=== PATIENT | female | born 1950 | race Caucasian/White ===

== ENCOUNTER → 2020-06-08 11:33 | Outpatient (BNVA) | payer MEDICARE, BC, SELFPAY | PROVIDERS: PCP Internal Medicine; Visit Provider Surgery Vascular Surgery | DX: I83.12 Varicose veins of left lower extremity with inflammation (principal); I83.11 Varicose veins of right lower extremity with inflammation; Z98.890 Other specified postprocedural states | CPT/HCPCS: 99213 ==

== ENCOUNTER → 2020-07-14 09:02 | Outpatient (BNVA) | payer MEDICARE, BC, SELFPAY | PROVIDERS: PCP Internal Medicine; Referring Provider Internal Medicine; Visit Provider Surgery Vascular Surgery | DX: I83.12 Varicose veins of left lower extremity with inflammation (principal) | CPT/HCPCS: 36482 ==

== ENCOUNTER 2020-07-17 09:05 | Outpatient (REF) | payer MEDICARE, BC, SELFPAY ==
--- NOTE | 2020-07-17 | US_ITS ---
EXAMINATION: US VENOUS ULTRASOUND WITH DOPPLER LOWER EXTREMITY, LEFT CLINICAL INFORMATION: Status post venaseal with left leg pain COMPARISON: None TECHNIQUE: Ultrasound of the deep veins is performed from the hip to the calf with compression sonography and color and pulse Doppler assessment. Spectral analysis with color-flow imaging is performed. FINDINGS: There is normal venous compression and respiratory variation and augmented flow. The visualized common femoral vein, superficial femoral vein, profunda femoral vein, popliteal vein, and the trifurcation region shows no evidence of deep venous thrombosis. There is no significant popliteal fossa cyst. No popliteal artery aneurysm. Thrombus is seen within the greater saphenous vein approximately 6 cm distal from the saphenofemoral junction. If the patient's symptoms persist, followup ultrasound in 5 days 7 days might be of value to exclude proximal propagation from a non-visualized calf vein. US/US venous duplex LE IMPRESSION: No acute DVT demonstrated in the left lower extremity. Greater saphenous vein thrombosis beginning approximately 6 cm from the saphenofemoral junction.
== END 2020-07-17 09:06 | disposition home or self-care (01) ==
LOC: HO.HMGCX 09:05
PROVIDERS: Visit Provider Surgery Vascular Surgery
DX: M79.605 Pain in left leg (principal)
CPT/HCPCS: 93971

== ENCOUNTER → 2020-07-31 10:02 | Outpatient (BNVA) | payer MEDICARE, BC, SELFPAY | PROVIDERS: PCP Internal Medicine; Referring Provider Internal Medicine; Visit Provider Surgery Vascular Surgery | DX: I83.12 Varicose veins of left lower extremity with inflammation (principal); Z98.890 Other specified postprocedural states | CPT/HCPCS: 99212 ==

== ENCOUNTER 2020-10-03 14:38 | Outpatient (REF) | payer MEDICARE, BC, SELFPAY ==
[2020-10-03 17:09] LABS: Anion Gap 13 (12-20); Blood Urea Nitrogen 15 mg/dL (9-16); Calcium 8.6 mg/dL (8.4-10.2); Carbon Dioxide 29 mmol/L (22-29); Chloride 106 mmol/L (96-108); Estimated Glomerular Filt Rate 56; Glucose Random 97 mg/dL (60-115); Sodium 143 mmol/L (135-145)
== END 2020-10-03 14:39 | disposition home or self-care (01) ==
LOC: HO.HMGCLDS 14:38
PROVIDERS: PCP Internal Medicine; Visit Provider Internal Medicine Cardiovascular Disease
DX: I48.91 Unspecified atrial fibrillation (principal)
CPT/HCPCS: 36415; 80048

== ENCOUNTER → 2020-12-26 10:53 | Outpatient (BNVA) | payer MEDICARE, BC, SELFPAY | PROVIDERS: PCP Internal Medicine; Visit Provider Surgery Vascular Surgery | DX: I83.11 Varicose veins of right lower extremity with inflammation (principal); I73.9 Peripheral vascular disease, unspecified | CPT/HCPCS: 99212 ==

== ENCOUNTER 2021-01-15 10:29 | Outpatient (REF) | payer MEDICARE, BC, SELFPAY ==
--- NOTE | ~2021-01-15 | US_ITS ---
EXAMINATION: BILATERAL LOWER EXTREMITY VENOUS ULTRASOUND (Reflux Exam) CLINICAL INDICATION: This is a 70-year-old female with venous insufficiency. Varicose veins. COMPARISON: Comparison is made to a previous study dated 07/17/2020 that was a deep vein study. There was no deep vein thrombosis in the left lower extremity. TECHNIQUE: Color flow triplex imaging and compression Doppler was performed to evaluate both the deep and the superficial systems bilaterally. To evaluate the superficial system, the examination was performed in the upright position. Color-flow Doppler ultrasound and compression ultrasound were utilized. In addition, maneuvers were utilized to demonstrate reflux. FINDINGS: 1. DEEP VENOUS ULTRASOUND OF THE RIGHT LOWER EXTREMITY: Common Femoral Vein: Compressible, normal respiratory variation and augmented flow. Femoral vein: Compressible, normal color flow and augmentation. Popliteal Vein: Compressible, normal augmentation. Deep Reflux: There is no evidence of reflux in the deep system in either the common femoral vein or the popliteal vein. . There is no evidence of a Hannon's cyst. 2. SUPERFICIAL ULTRASOUND WITH DOPPLER OF RIGHT LOWER EXTREMITY GREAT SAPHENOUS VEIN: Saphenofemoral junction: 0.7 cm. There is no reflux in the vessels patent. Mid thigh: 0.2 cm. The vessel appear closed Above knee: 0.2 cm. The vessel appears closed. Below knee: 0.2 cm. The vessel is patent without reflux. Mid calf: 0.2 cm. The vessel is patent without reflux. Ankle: 0.2 cm. The vessel is patent without reflux. GSV REFLUX: There is an isolated segment at the knee with reflux. There is no reflux at the junction. DUPLICATED GREAT SAPHENOUS VEIN: There is a duplicated lateral great saphenous vein measuring 0.5 cm with the reflux time of 960 ms. SMALL SAPHENOUS VEIN: Upper: 0.3 cm Lower: 0.1 cm SSV REFLUX: No evidence of reflux. VEIN OF GIACOMINI: None Imaged. PERFORATORS: There is a 0.5 cm proximal calf employment supervisor without reflux P VARICOSITIES: There are multiple varicose veins in the distal thigh, at the knee, proximal calf, lateral knee, respectively. These measure 0.3, 0.5, 0.6 cm. There is greater than 3 seconds of reflux within these varicose veins. 3. DEEP VENOUS ULTRASOUND OF THE LEFT LOWER EXTREMITY: Common Femoral Vein: There is reflux at the common femoral vein with the reflux time of 1000 144 ms. Femoral vein: Compressible, normal color flow and augmentation. Popliteal Vein: Compressible, normal augmentation. Deep Reflux: There is reflux in the left common femoral vein. There is no evidence of a Hannon's cyst. 4. SUPERFICIAL ULTRASOUND WITH DOPPLER OF LEFT LOWER EXTREMITY GREAT SAPHENOUS VEIN: Saphenofemoral junction: 1.2 cm. There is reflux at the junction of 2248 ms. Mid thigh: 0.4 cm. The vessel appears closed without reflux. Above knee: 0.3 cm. The vessel appears closed without reflux to Below knee: 0.2 cm. The vessels patent without reflux. Mid calf: 0.1 cm. The vessel is patent without reflux. Ankle: 0.2 cm. The vessel is patent without reflux. GSV REFLUX: There is isolated reflux at the junction. DUPLICATED GREAT SAPHENOUS VEIN: There is a duplicated lateral great saphenous vein measuring 1.0 cm with the reflux time of 2744 ms at the junction. SMALL SAPHENOUS VEIN: Upper: 0.2 cm Lower: Your 0.1 cm SSV REFLUX: No evidence of reflux. VEIN OF GIACOMINI: None Imaged. PERFORATORS: There are 0.2 cm perforators in the proximal calf without reflux. VARICOSITIES: There are 0.3 and 0.4 cm varicose veins at the knee and in the calf. There is greater than 3 seconds of reflux. There is superficial thrombophlebitis in the posterior mid calf varicosity. US/US venous duplex LE BI IMPRESSION: 1. The right great saphenous vein is patent at the junction without reflux. The mid thigh and above-knee great saphenous vein appear closed consistent with previous treatment. 2. There is a duplicated right lateral great saphenous vein which measures 0.5 cm with 960 ms of reflux. 3. There is a patent right small saphenous vein without reflux. 4. There are varicose veins throughout the right leg measuring 0.5 and 0.6 cm with greater than 3 seconds of reflux. 5. The left great saphenous vein is patent at the junction with the reflux time of 2240 ms. In the proximal thigh there is no reflux. In the mid thigh extending to the level the knee the left great saphenous vein appears closed consistent with previous treatment. 6. There is a duplicated left lateral great saphenous vein with reflux at the junction. 7. There is a patent left small saphenous vein without reflux. 8. There are 0.3 and 0.4 cm varicose veins at the knee and the calf with greater than 3 seconds of reflux. 9. There is reflux in the left common femoral vein. 10. There is superficial thrombophlebitis in the posterior mid left calf varicose vein. This area is tender to palpation.
== END 2021-01-15 10:30 | disposition home or self-care (01) ==
LOC: HO.US 10:29
PROVIDERS: Visit Provider Surgery Vascular Surgery
DX: I83.893 Varicose veins of bilateral lower extremities with other complications (principal)
CPT/HCPCS: 93970

== ENCOUNTER 2021-01-16 12:47 | Outpatient (REF) | payer MEDICARE, BC, SELFPAY ==
--- NOTE | ~2021-01-16 | US_ITS ---
EXAMINATION: COLOR-FLOW DUPLEX IMAGING OF THE BILATERAL LOWER EXTREMITY ARTERIAL SYSTEM. VELOCITY MEASUREMENTS THROUGHOUT THE FEMORAL ARTERIES WITH ANKLE-BRACHIAL PERIPHERAL ARTERIAL TESTING. CLINICAL INFORMATION: This is a 70-year-old female with peripheral vascular disease. Interventional Radiologist: Good Rabago M.D., F.S.I.R., F.A.C.R. RIGHT FEMORAL RUNOFF VELOCITIES: The right common femoral artery measures 124 cm/s and triphasic. The right profunda femoral artery is 104 cm/s and is triphasic. Right proximal superficial femoral artery measures 115 cm/s and triphasic. Mid superficial femoral artery is 115 cm/s and triphasic. Distal right superficial femoral artery measures 103 cm/s and is biphasic. Right popliteal velocity measures 30 66 cm/s and is biphasic. The posterior tibial artery velocity measures 118 cm/s and was biphasic. The right ankle-brachial index is 1.44. LEFT FEMORAL RUNOFF VELOCITIES: The left common femoral artery measures 86 cm/s and biphasic. The left profunda femoral artery is 60 cm/s and is triphasic. Left proximal superficial femoral artery measures 130 cm/s and triphasic. Mid superficial femoral artery is 116 cm/s and triphasic. Distal left superficial femoral artery measures 67 cm/s and is triphasic. Left popliteal velocity measures 56 cm/s and is triphasic. The posterior tibial artery velocity measures 129 cm/s and was triphasic. The left ankle-brachial index is 1.44. An arrhythmia was noted during the course of the duplex portion of the study. This would be best evaluated with an EKG. US/US arterial duplex LE BI IMPRESSION: 1. Normal bilateral peripheral arterial testing without evidence of hemodynamically significant stenosis. 2. An arrhythmia was noted during the course of the duplex portion of the study. This would be best evaluated with an EKG.
== END 2021-01-16 12:48 | disposition home or self-care (01) ==
LOC: HO.US 12:47
PROVIDERS: Visit Provider Surgery Vascular Surgery
DX: I70.213 Atherosclerosis of native arteries of extremities with intermittent claudication, bilateral legs (principal)
CPT/HCPCS: 93925

== ENCOUNTER → 2021-01-23 11:00 | Outpatient (BNVA) | payer MEDICARE, BC, SELFPAY | PROVIDERS: PCP Internal Medicine; Visit Provider Surgery Vascular Surgery | DX: I83.12 Varicose veins of left lower extremity with inflammation (principal); I73.9 Peripheral vascular disease, unspecified | CPT/HCPCS: 99212 ==

== ENCOUNTER → 2021-02-26 13:51 | Outpatient (BNVA) | payer MEDICARE, BC, SELFPAY | PROVIDERS: PCP Internal Medicine; Visit Provider Hospitalist | DX: J44.9 Chronic obstructive pulmonary disease, unspecified (principal); J30.9 Allergic rhinitis, unspecified; K21.9 Gastro-esophageal reflux disease without esophagitis; I48.91 Unspecified atrial fibrillation | CPT/HCPCS: 99202 ==

== ENCOUNTER 2021-03-02 12:06 | Outpatient (REF) | payer MEDICARE, BC, SELFPAY ==
--- NOTE | ~2021-03-02 | XR_ITS ---
EXAMINATION: XR CHEST CLINICAL INFORMATION: J44.9 - Chronic obstructive pulmonary disease COMPARISON: Chest radiographs 08/13/2019 TECHNIQUE: 2 views of the chest were obtained. FINDINGS: The lungs are clear. There is no airspace consolidation or effusion. No definite hyperinflation. The costophrenic sulci are clear. The vascularity is normal. The heart is within limits of normal size. The hilar and mediastinal contours and bony structures are stable. XR/XR chest 2V IMPRESSION: No acute intrathoracic disease. Lungs clear.
[2021-03-02 14:16] LABS: Basophils Absolute Auto 0.1 X10*3/uL (0.0-0.2); Basophils Percent Auto 0.9 % (0-2); White Blood Count 5.8 X10*3/uL (4.8-10.8)
[2021-03-02 14:18] LABS: Eosinophils Absolute Auto 0.2 X10*3/uL (0.0-0.4); Eosinophils Percent Auto 2.8 % (0-4); Hematocrit 32.6 % (37-47); Hemoglobin 9.4 g/dl (12.0-16.0); Imm Gran Abs Auto 0.01 X10*3/uL (0.00-0.03); Imm Gran Pct Auto 0.2 % (0.0-0.4); Lymphocytes Absolute Auto 1.2 X10*3/uL (1.2-4.9); Lymphocytes Percent Auto 19.8 % (20-40); Mean Corpuscular HGB Conc 28.8 g/dl (31.0-35.0); Mean Corpuscular Volume 79.9 fL (80-98); Mean Platelet Volume 12.1 fL (9.4-12.3); Monocytes Absolute Auto 0.6 X10*3/uL (0.1-1.2); Monocytes Percent Auto 10.8 % (2-11); Neutrophils Absolute Auto 3.8 X10*3/uL (2.0-8.3); Neutrophils Percent Auto 65.5 % (45-73); Platelet Count 207 X10*3/uL (160-400); Red Blood Count 4.08 X10*6/uL (4.20-5.50)
[2021-03-02 14:21] LABS: MANUAL DIFF FLAG NO
[2021-03-02 14:28] LABS: B Type Natriuretic Peptide 647 pg/mL (<100)
[2021-03-02 14:29] LABS: Anion Gap 11 (12-20); Blood Urea Nitrogen 18 mg/dL (9-16); Calcium 8.3 mg/dL (8.4-10.2); Carbon Dioxide 25 mmol/L (22-29); Chloride 110 mmol/L (96-108); Estimated Glomerular Filt Rate 43; Glucose Random 80 mg/dL (60-115); Potassium 4.8 mmol/L (3.3-5.1); Sodium 141 mmol/L (135-145)
== END 2021-03-02 12:07 | disposition home or self-care (01) ==
LOC: HO.HMGCX 12:06
PROVIDERS: Internal Medicine Cardiovascular Disease; PCP Internal Medicine; Visit Provider Hospitalist
DX: I48.0 Paroxysmal atrial fibrillation (principal); J44.9 Chronic obstructive pulmonary disease, unspecified
CPT/HCPCS: 36415; 71046; 80048; 83880; 85025

== ENCOUNTER → 2021-04-03 11:15 | Outpatient (BNVA) | payer MEDICARE, BC, SELFPAY | PROVIDERS: PCP Internal Medicine; Visit Provider Hospitalist | DX: J44.9 Chronic obstructive pulmonary disease, unspecified (principal); I49.8 Other specified cardiac arrhythmias; R06.00 Dyspnea, unspecified; D64.89 Other specified anemias | CPT/HCPCS: 99212 ==

== ENCOUNTER → 2021-08-06 10:58 | Outpatient (BNVA) | payer MEDICARE, BC, SELFPAY | PROVIDERS: PCP Internal Medicine; Visit Provider Hospitalist | DX: J44.9 Chronic obstructive pulmonary disease, unspecified (principal); R06.00 Dyspnea, unspecified; Z23 Encounter for immunization | CPT/HCPCS: 90471; 90670; 99212 ==

== ENCOUNTER 2022-07-08 11:36 | Outpatient (REF) | payer MEDICARE, BC, SELFPAY ==
--- NOTE | ~2022-07-08 | XR_ITS ---
EXAMINATION: XR CHEST CLINICAL INFORMATION: COPD COMPARISON: Previous chest x-ray February 2021 TECHNIQUE: 2 views of the chest were obtained. FINDINGS: The cardiac and mediastinal contours are stable. The lungs are clear. There is no pleural effusion or pneumothorax. There are degenerative changes of the spine. XR/XR chest 2V IMPRESSION: Unremarkable examination.
[2022-07-08 11:59] LABS: MANUAL DIFF FLAG NO
[2022-07-08 12:59] LABS: Basophils Percent Auto 0.5 % (0-2); Eosinophils Absolute Auto 0.1 X10*3/uL (0.0-0.4); Eosinophils Percent Auto 1.5 % (0-4); Hematocrit 40.3 % (37.0-47.0); Hemoglobin 12.7 g/dl (12.0-16.0); Imm Gran Abs Auto 0.03 X10*3/uL (0.00-0.03); Imm Gran Pct Auto 0.4 % (0.0-0.4); Lymphocytes Absolute Auto 1.2 X10*3/uL (1.2-4.9); Lymphocytes Percent Auto 13.7 % (20-40); Mean Corpuscular HGB Conc 31.5 g/dl (31.0-35.0); Mean Corpuscular Hemoglobin 30.8 pg (27.0-33.0); Mean Corpuscular Volume 97.6 fL (80.0-98.0); Mean Platelet Volume 12.9 fL (9.4-12.3); Monocytes Absolute Auto 0.8 X10*3/uL (0.1-1.2); Monocytes Percent Auto 9.3 % (2-11); Neutrophils Absolute Auto 6.3 x10*3/uL (2.0-8.3); Neutrophils Percent Auto 74.6 % (45-73); Platelet Count 185 X10*3/uL (160-400); Red Blood Count 4.13 X10*6/uL (4.20-5.50); Red Cell Distribution Width 14.2 % (11.0-16.0); White Blood Count 8.5 X10*3/uL (4.8-10.8)
[2022-07-08 13:15] LABS: Anion Gap 16 (12-20); Blood Urea Nitrogen 21 mg/dL (9-16); Calcium 9.4 mg/dL (8.4-10.2); Carbon Dioxide 28 mmol/L (22-29); Chloride 104 mmol/L (96-108); Estimated Glomerular Filt Rate 53; Glucose Random 91 mg/dL (60-115); Potassium 4.4 mmol/L (3.3-5.1); Sodium 144 mmol/L (135-145)
[2022-07-08 13:48] LABS: Erythrocyte Sedimentation Rate 12 MM/HR (0-20)
== END 2022-07-08 11:37 | disposition home or self-care (01) ==
LOC: HO.XRAY 11:36
PROVIDERS: PCP Internal Medicine; Visit Provider Hospitalist
DX: J44.9 Chronic obstructive pulmonary disease, unspecified (principal); I48.91 Unspecified atrial fibrillation; Z87.891 Personal history of nicotine dependence
CPT/HCPCS: 36415; 71046; 80048; 85025; 85652; 99212

== ENCOUNTER → 2022-08-19 10:46 | Outpatient (BNVA) | payer MEDICARE, BC, SELFPAY | PROVIDERS: PCP Internal Medicine; Visit Provider Hospitalist | DX: J44.9 Chronic obstructive pulmonary disease, unspecified (principal); R06.00 Dyspnea, unspecified; Z79.899 Other long term (current) drug therapy | CPT/HCPCS: 99212 ==

== ENCOUNTER 2022-11-11 10:15 | Outpatient (REF) | payer MEDICARE, BC, SELFPAY ==
[2022-11-11 11:11] LABS: MANUAL DIFF FLAG NO
[2022-11-11 12:04] LABS: Basophils Absolute Auto 0.1 X10*3/uL (0.0-0.2); Basophils Percent Auto 0.9 % (0-2); Eosinophils Absolute Auto 0.2 X10*3/uL (0.0-0.4); Eosinophils Percent Auto 3.2 % (0-4); Hematocrit 37.8 % (37.0-47.0); Hemoglobin 11.6 g/dl (12.0-16.0); Imm Gran Abs Auto 0.02 X10*3/uL (0.00-0.03); Imm Gran Pct Auto 0.4 % (0.0-0.4); Lymphocytes Percent Auto 17.2 % (20-40); Mean Corpuscular HGB Conc 30.7 g/dl (31.0-35.0); Mean Corpuscular Hemoglobin 28.6 pg (27.0-33.0); Mean Corpuscular Volume 93.3 fL (80.0-98.0); Mean Platelet Volume 12.4 fL (9.4-12.3); Monocytes Absolute Auto 0.7 X10*3/uL (0.1-1.2); Monocytes Percent Auto 12.4 % (2-11); Neutrophils Absolute Auto 3.8 x10*3/uL (2.0-8.3); Neutrophils Percent Auto 65.9 % (45-73); Platelet Count 195 X10*3/uL (160-400); Red Blood Count 4.05 X10*6/uL (4.20-5.50); Red Cell Distribution Width 14.9 % (11.0-16.0); White Blood Count 5.7 X10*3/uL (4.8-10.8)
[2022-11-11 12:30] LABS: B Type Natriuretic Peptide 188 pg/mL (<100)
[2022-11-11 13:01] LABS: Erythrocyte Sedimentation Rate 16 MM/HR (0-20)
[2022-11-11 13:21] LABS: Alanine Aminotransferase 20 U/L (0-31); Albumin Level 3.5 g/dL (3.5-5.0); Alkaline Phosphatase 92 U/L (39-117); Anion Gap 13 (12-20); Aspartate Amino Transferase 23 U/L (5-31); Bilirubin Direct 0.3 mg/dL (0.0-0.5); Bilirubin Total 0.7 mg/dL (0.0-1.0); Blood Urea Nitrogen 16 mg/dL (9-16); Calcium 8.8 mg/dL (8.4-10.2); Carbon Dioxide 31 mmol/L (22-29); Chloride 107 mmol/L (96-108); Estimated Glomerular Filt Rate 59; Glucose Random 89 mg/dL (60-115); Potassium 4.5 mmol/L (3.3-5.1); Sodium 146 mmol/L (135-145); Total Protein 5.6 g/dL (6.5-8.0)
[2022-11-11 13:33] LABS: Troponin-I High Sensitivity 9.2 ng/L (<3.5-17.0)
== END 2022-11-11 10:16 | disposition home or self-care (01) ==
LOC: HO.LAB 10:15
PROVIDERS: PCP Internal Medicine; Visit Provider Hospitalist
DX: J44.9 Chronic obstructive pulmonary disease, unspecified (principal); R06.00 Dyspnea, unspecified; I50.9 Heart failure, unspecified
CPT/HCPCS: 36415; 80048; 80076; 83880; 84484; 85025; 85652; 99212

== ENCOUNTER → 2022-12-16 10:58 | Outpatient (REF) | payer MEDICARE, BC, SELFPAY ==
--- NOTE | 2022-12-16 11:03 | CA_ITS ---
Acquisition Time: 2022-12-16 11:12:48 Total Exercise Time: 00:01:23 Test Indications: Dyspnea ASSESS PULM HTN Medications: BUSPIRONE DILTIAZEM METOPROLOL LEVOTHYROXINE OMEPRAZOLE Protocol: FIORDALIZA Max HR: 109 BPM 74% of Pred: 147 BPM Max BP: 112/062 mmHG Max Work Load: 2.9 METS Exercise stress test exercise 1 min 23 sec of Fiordaliza protocl (stage one reduced speed 1.5mph) achieiving 55% MPHR with moderate SOB with request to stop, without chest discomfort, with PACs and PVCs, with non-diagnostic EKG for ischemia. Echo images obtained by tech at rest and immediately post peak exercise. Definity contast used. Test reviewed with Dr. Ortiz. Referred By: Alcon Joseph Overread By: CHERYL URBAN
== END ==
LOC: HO.CARD 10:58
PROVIDERS: PCP Internal Medicine; Visit Provider Hospitalist
DX: R06.00 Dyspnea, unspecified (principal)
CPT/HCPCS: 93350; Q9957

== ENCOUNTER → 2023-01-02 09:52 | Outpatient (BNVA) | payer MEDICARE, BC, SELFPAY | PROVIDERS: PCP Internal Medicine; Visit Provider Nurse Practitioner Family | DX: G47.26 Circadian rhythm sleep disorder, shift work type (principal); R40.0 Somnolence; R06.83 Snoring | CPT/HCPCS: 99202 ==

== ENCOUNTER → 2023-01-06 10:54 | Outpatient (BNVA) | payer MEDICARE, BC, SELFPAY | PROVIDERS: PCP Internal Medicine; Visit Provider Hospitalist | DX: J44.9 Chronic obstructive pulmonary disease, unspecified (principal); R06.00 Dyspnea, unspecified; I27.20 Pulmonary hypertension, unspecified | CPT/HCPCS: 94618; 99212 ==

== ENCOUNTER → 2023-01-27 12:40 | Outpatient (REF) | payer MEDICARE, BC, SELFPAY | LOC: HO.SL 12:40 | PROVIDERS: Visit Provider Nurse Practitioner Family | DX: G47.33 Obstructive sleep apnea (adult) (pediatric) (principal); R40.0 Somnolence; R06.83 Snoring | CPT/HCPCS: 95806 ==

== ENCOUNTER → 2023-03-10 10:44 | Outpatient (BNVA) | payer MEDICARE, BC, SELFPAY | PROVIDERS: PCP Internal Medicine; Visit Provider Nurse Practitioner Family | DX: G47.33 Obstructive sleep apnea (adult) (pediatric) (principal) | CPT/HCPCS: 99212 ==

== ENCOUNTER 2023-08-22 10:57 | Outpatient (AMB) | payer MEDICARE, BC, SELFPAY ==
[2023-08-22 11:02] VITALS: PULSE 65; O2SAT 97; BMI 35.2
--- NOTE | 2023-08-22 11:02 | A.OFFVIS_ITS ---
Intake Vital Signs 08/22/23 11:02 Height 5 ft 7 in Weight 225 lb BMI 35.2 Pulse 65 Pulse Source Pulse Oximeter Pulse Oximetry (%) 97 Oxygen Delivery Method Room Air Intake Visit Reasons: asthma Allergies No Known Allergies Allergy (Verified 08/22/23 11:03) HPI HPI Comments History of Present Illness Details The patient is a 73-year-old woman with a former history of smoking, known COPD in addition to atrial fibrillation. She is status post recent cardioversion. Now she is being further evaluated for persistent tachyarrhythmias. In the meantime she has been complaining of shortness of breath and dyspnea. Moderate severity. She has tried multiple inhalers in the past. Currently she is using Spiriva and Symbicort. It is not clear how effective these inhalers are to her as she may not be using correctly. She is using a spacer but feels like the medication is skating the chamber. In the wv antime the patient does have issues with peripheral vascular disease and varicose veins. She does state anticoagulation therapy and she is adherent to the therapy. Therefore thromboembolic disease be less likely. 04/03/2021 the patient is here for pulkaila yusuf follow-up visit. Since we last spoke the patient underwent a cardiac ablation at [facility]. was complicated by blood loss she was readmitted to the hospital and required 2 pt of blood. The patient has described feeling more fatigued more short of breath. She is not sure if it is from lung so the heart issue. We did measure her peak flow in the office and was 300. I did provide her with a nebulized treatment with DuoNeb x1 and then we repeated the peak flow and was still the same number. At this point she is maximize on her respiratory therapy. My suspicion is her dyspnea symptoms are mainly from her anemia and her ongoing cardiac issues. I was concerned with her heart rate that was in the low 40s. The patient does feel lightheaded at times. We did do a brief walking test and pulse ox did improved to the low 50s. The patient was symptomatic at time. Therefore, I did recommend that she follow-up with spool fixer soon to address the significant bradycardia that is likely contributing to her fatigue and dyspnea symptoms. 08/06/2021 the patient is here for a pulmonary follow-up visit. Overall the patient has been feeling better. She was started on respiratory therapy with Trelegy. [place] like it was not as helpful in she then was seen by her barley steeper who switched her over to Breztri. she feels the new inhaler has been very effective for her. Her shortness of breath is the crease. She has not had to use her rescue inhaler. She has not had to use the nebulized treatments. Recently she was diagnosed with cellulitis. She does have lower extremity edema. She needs to start wearing her compression stockings. Otherwise the patient is without any other complaints. 07/08/2022 The patient is here for a pul monary follow up vist. She continue on the Breztri. Overall her breathing is better, except for the dyspnea on exertion. Moderate in severity. She has plan to go on a cruise in October and she is hoping to feel better. We did go on a brief walking oximetry and her pox was 96% and became dyspnea 03/17 once her HR was above 80. We will request a CXR and PFTS. Would likely benefit from a cardiology evaluation as well. 08/19/2022 the patient is here for a pulmonary follow-up visit. She continues to have dyspnea on exertion. Moderate severity with minimal activity. Typically does not bother her when she is doing her activities of daily living. However she has multiple trips plan starting in October and she is concerned that she is going to have a hard time with them. She did follow-up with cardiology and had a full workup. She also underwent pulmonary function studies demonstrating no obstructive nor restrictive ventilatory defects. She does have a mild diffusion impairment. But she did not result in the degree of dyspnea that she has. We talked about go ahead and requesting a cardiopulmonary exercise tolerance test to further address her dyspnea symptoms that at this time are ups care. We also did blood work and she does have a normal hemoglobin ruling out potential anemia sat etiology. The rest of the blood work was unremarkable. The patient also had a chest x-ray demonstrating no acute disease. 11/11/2022 the patient is here for a pulmo madelin follow-up visit. She is feeling ?terrible ?. She has got back from a cruise for about 12 days. She had a hard time with her breathing. It was very hot. She did have dietary indiscretions. Patient noticed that she has had significant weight gain. She gained about 18 lb during the trip. Afterwards she has lost some of the weight already. Her lower extremities are significantly swollen. Unfortunately because of the heat and also her significant ext edema she noticed worsening respiratory symptoms. She could barely walk from place to place. She had a horrible experience overall. Again, on exam she does have significant lower extremity edema with pitting edema up to the knees and thighs. We did have her undergo blood work including a brain atretic peptide which is elevated to 188. She the patient may have a component of heart failure. She has had a full cardiac workup without any significant findings however. She may have heart failure with a preserved EF or have some underlying pulmonary hypertension that resulting worsening right-sided heart failure. Therefore will go ahead and increase her diuretics. The patient also will be weighing herself daily and also taking additional interventions if her weight continues to be elevated patient will be requested to have a stress echo in order to assess her RV function specially when she is active and also hopefully we can measure pulmonary pressures to assess the question of pulmonary hypertension. At the inhalers are not very effective. She may have a component of sleep apnea although she will not use any oxygen or PAP therapy. Will recheck her overnight oximetry to make sure. 01/06/2023 the patient is here for pulmona ry follow-up visit. She is still having issues with dyspnea on exertion. Moderate severity. She is doing a little better now that her fluid volume status is better controlled. Her regular echocardiogram demonstrated preserved EF. She did have a cardiopulmonary exercise study with echo demonstrating exercise-induced pulmonary hypertension secondary to pulmonary arterial hypertension. No evidence of any cardiac abnormalities and no evidence of any pulmonary disease. Therefore, will start the patient on sildenafil. We did have her go for 6 minute walk test prior to starting the medication which she was able to ambulate 950 ft. Will start the medication and then have her get a repeat study when she returns. She will continue with current respiratory therapy at this time. She did not qualify for oxygen which is reassuring. 08/22/2023 the patient is here for a pul monary follow-up visit. She still complaining of the same symptoms persistent dyspnea on exertion. She did go on a cruise in June she had all full-time she states. The patient had been diagnosed with exercise-induced pulmonary hypertension and she was prescribed a PD 5 inhibitor, tadalafil and the patient did start the medication. Although the the patient noted some cramps and she stop taking the medicine with a plant that she had call the office for her to restart the medicine. Although she never did. In the meantime she did see her spool fixer who will did additional evaluations. She was placed on Jardiance and she has noted some improvement as also weight loss which is helped her breathing. She is reassured that this medication is helping her cardiac issues. She is hoping to be able to continue the medication a week although she only has 1 week left. I did explain to her that the medication doc covered she should go back on the PD 5 inhibitor. Also, we did talk about pulmonary rehabilitation. Request pulmonary function studies at [facility] if subsequently refer her to pulmonary rehab at [facility] as this is her preference. [facility] Medical History (Updated 03/10/23 @ 16:52 by Rosalia Casas CNP) Pulmonary hypertension Anemia Dyspnea Bradyarrhythmia Asthma-COPD overlap syndrome Allergic rhinitis GERD (gastroesophageal reflux disease) Chronic bilateral low back pain Asthma Anxiety Afib Surgical History History of abdominoplasty Hx laparoscopic cholecystectomy Gallbladder attack H/O: hysterectomy H/O gastric bypass H/O cardiac radiofrequency ablation (~04/2020) Family History (Updated 01/02/23 @ 10:10 by Molly Cardona CMA) Mother HTN (hypertension) Dementia Father HTN (hypertension) Diabetes Sister Diabetes Social History (Updated 01/02/23 @ 10:10 by Molly Cardona CMA) Alcohol intake: never Patient Tobacco Use Status: Never used Tobacco Second Hand Smoke Exposure: No Review of Systems Const Denies night sweats ENT Denies change in voice, Denies lip swelling, Denies mouth pain, Reports nasal congestion, Reports nasal discharge and Denies tongue swelling Card Denies chest pain, Reports leg edema and Reports dyspnea on exertion Resp Reports cough and Reports dyspnea on exertion GI Denies abdominal pain Musc Denies no additional complaints Neuro Denies Neuro-related abnormal movements Psych Denies no additional complaints Tc/Lymph Denies easy bleeding and Denies lymphadenopathy Aller/Immun Denies lip swelling and Denies tongue swelling Physical Exam Vital Signs: Last Vital Signs Pulse 65 08/22/23 11:02 Pulse Ox 97 08/22/23 11:02 Oxygen Delivery Method Room Air 08/22/23 11:02 BMI result Body Mass Index 35.2 Const General: alert Neck Neck: Yes normal visual inspection, Yes full ROM and Yes no lymphadenopathy Chest Chest palpation & inspection: normal inspection of the chest Resp Auscultation: no rales, no rhonchi, no wheezes and diminished lung sounds Cardio Rate: regular rate and tachycardic Rhythm: regular rhythm Heart sounds: S1 normal heart sound present, S2 normal heart sound present and Abnormal heart opening sounds loud S2 GI Palpation (GI): Soft to palpation and nontender Auscultation: normal bowel sounds Skin General skin exam: rashes and/or lesions noted Extrem General: Yes edema and Yes pedal edema Assessment & Plan Assessment & Plan (1) Asthma-COPD overlap syndrome: Code(s): J44.9 - Chronic obstructive pulmonary disease, unspecified (2) Dyspnea: Comment: volume overload Code(s): R06.00 - Dyspnea, unspecified Qualifiers: Dyspnea type: dyspnea on exertion Qualified Code(s): R06.00 - Dyspnea, unspecified (3) Pulmonary hypertension: Comment: Group 1, exercise indused Code(s): I27.20 - Pulmonary hypertension, unspecified Plan Continue Breztri 2puff BID continue diuresis Needs to maintain low NA diet holding Tadalafil daily, will retry the Tadalafil if not on Jardiace responding well Jardiace continue singulair KENY as needed PFTs (pt prefers [facility]) start Pulmonary rehab (pt prefers [facility]) follow-up 3-4 months Orders: Orders Pulmonary Rehab 08/22/23 I27.20 - Pulmonary hypertension, unspecified, J44.9 - Chronic obstructive pulmonary disease, unspecified PFT pulmonary function test Today I27.20 - Pulmonary hypertension, unspecified, J44.9 - Chronic obstructive pulmonary disease, unspecified Coding Level of Care Code Est Pt Level 4 (55793) Diagnoses Asthma-COPD overlap syndrome J44.9 Dyspnea on exertion R06.00 Dyspnea type: dyspnea on exertion Pulmonary hypertension I27.20 Time Spent (min) 17
== END 2023-08-22 11:21 | disposition home or self-care (01) ==
PROVIDERS: PCP Internal Medicine; Visit Provider Hospitalist
DX: J44.9 Chronic obstructive pulmonary disease, unspecified (principal); R06.00 Dyspnea, unspecified; I27.20 Pulmonary hypertension, unspecified
CPT/HCPCS: 99214

== ENCOUNTER → 2023-08-22 10:57 | Outpatient (BNVA) | payer MEDICARE, BC, SELFPAY | PROVIDERS: PCP Internal Medicine; Visit Provider Hospitalist | DX: J44.9 Chronic obstructive pulmonary disease, unspecified (principal); R06.00 Dyspnea, unspecified; I27.20 Pulmonary hypertension, unspecified | CPT/HCPCS: 99212 ==

== ENCOUNTER 2024-03-23 10:33 | Outpatient (AMB) | payer MEDICARE, BC, SELFPAY ==
--- NOTE | 2024-03-23 10:39 | A.OFFVIS_ITS ---
Vital Signs 03/23/24 10:40 Height 5 ft 7 in Weight 212 lb BMI 33.2 BP 102/58 L Blood Pressure Location Rt brachial Position Sitting Pulse 65 Pulse Source Pulse Oximeter Pulse Oximetry (%) 94 Oxygen Delivery Method Room Air Intake Visit Reasons: asthma Production Checker Required: No Allergies No Known Allergies Allergy (Verified 03/23/24 10:40) HPI Comments Details: The patient is a 73-year-old woman with a former history of smoking, known COPD in addition to atrial fibrillation. She is status post recent cardioversion. Now she is being further evaluated for persistent tachyarrhythmias. In the meantime she has been complaining of shortness of breath and dyspnea. Moderate severity. She has tried multiple inhalers in the past. Currently she is using Spiriva and Symbicort. It is not clear how effective these inhalers are to her as she may not be using correctly. She is using a spacer but feels like the medication is skating the chamber. In the meantime the patient does have issues with peripheral vascular disease and varicose veins. She does state anticoagulation therapy and she is adherent to the therapy. Therefore thromboembolic disease be less likely. 04/03/2021 the patient is here for pulmonary follow-up visit. Since we last spoke the patient underwent a cardiac ablation at [facility]. was complicated by blood loss she was readmitted to the hospital and required 2 pt of blood. The patient has described feeling more fatigued more short of breath. She is not sure if it is from lung so the heart issue. We did measure her peak flow in the office and was 300. I did provide her with a nebulized treatment with DuoNeb x1 and then we repeated the peak flow and was still the same number. At this point she is maximize on her respiratory therapy. My suspicion is her dyspnea symptoms are mainly from her anemia and her ongoing cardiac issues. I was concerned with her heart rate that was in the low 40s. The patient does feel lightheaded at times. We did do a brief walking test and pulse ox did improved to the low 50s. The patient was symptomatic at time. Therefore, I did recommend that she follow-up with recyclable materials distributor soon to address the significant bradycardia that is likely contributing to her fatigue and dyspnea symptoms. 08/06/2021 the patient is here for a pulmonary follow-up visit. Overall the patient has been feeling better. She was started on respiratory therapy with Trelegy. [place] like it was not as helpful in she then was seen by her cloth spreader screen printing who switched her over to Breztri. she feels the new inhaler has been very effective for her. Her shortness of breath is the crease. She has not had to use her rescue inhaler. She has not had to use the nebulized treatments. Recently she was diagnosed with cellulitis. She does have lower extremity edema. She needs to start wearing her compression stockings. Otherwise the patient is without any other complaints. 07/08/2022 The patient is here for a pulmonary follow up vist. She continue on the Breztri. Overall her breathing is better, except for the dyspnea on exertion. Moderate in severity. She has plan to go on a cruise in October and she is hoping to feel better. We did go on a brief walking oximetry and her pox was 96% and became dyspnea /10 once her HR was above 80. We will request a CXR and PFTS. Would likely benefit from a cardiology evaluation as well. 08/19/2022 the patient is here for a pulmonary follow-up visit. She continues to have dyspnea on exertion. Moderate severity with minimal activity. Typically does not bother her when she is doing her activities of daily living. However she has multiple trips plan starting in October and she is concerned that she is going to have a hard time with them. She did follow-up with cardiology and had a full workup. She also underwent pulmonary function studies demonstrating no obstructive nor restrictive ventilatory defects. She does have a mild diffusion impairment. But she did not result in the degree of dyspnea that she has. We talked about go ahead and requesting a cardiopulmonary exercise tolerance test to further address her dyspnea symptoms that at this time are ups care. We also did blood work and she does have a normal hemoglobin ruling out potential anemia sat etiology. The rest of the blood work was unremarkable. The patient also had a chest x-ray demonstrating no acute disease. 11/11/2022 the patient is here for a pulmonary follow-up visit. She is feeling ?terrible ?. She has got back from a cruise for about 12 days. She had a hard time with her breathing. It was very hot. She did have dietary indiscretions. Patient noticed that she has had significant weight gain. She gained about 18 lb during the trip. Afterwards she has lost some of the weight already. Her lower extremities are significantly swollen. Unfortunately because of the heat and also her significant ext edema she noticed worsening respiratory symptoms. She could barely walk from place to place. She had a horrible experience overall. Again, on exam she does have significant lower extremity edema with pitting edema up to the knees and thighs. We did have her undergo blood work including a brain atretic peptide which is elevated to 188. She the patient may have a component of heart failure. She has had a full cardiac workup without any significant findings however. She may have heart failure with a preserved EF or have some underlying pulmonary hypertension that resulting worsening right-sided heart failure. Therefore will go ahead and increase her diuretics. The patient also will be weighing herself daily and also taking additional interventions if her weight continues to be elevated patient will be requested to have a stress echo in order to assess her RV function specially when she is active and also hopefully we can measure pulmonary pressures to assess the question of pulmonary hypertension. At the inhalers are not very effective. She may have a component of sleep apnea although she will not use any oxygen or PAP therapy. Will recheck her overnight oximetry to make sure. 01/06/2023 the patient is here for pulmonary follow-up visit. She is still having issues with dyspnea on exertion. Moderate severity. She is doing a little better now that her fluid volume status is better controlled. Her regular echocardiogram demonstrated preserved EF. She did have a cardiopulmonary exercise study with echo demonstrating exercise-induced pulmonary hypertension secondary to pulmonary arterial hypertension. No evidence of any cardiac abnormalities and no evidence of any pulmonary disease. Therefore, will start the patient on sildenafil. We did have her go for 6 minute walk test prior to starting the medication which she was able to ambulate 950 ft. Will start the medication and then have her get a repeat study when she returns. She will continue with current respiratory therapy at this time. She did not qualify for oxygen which is reassuring. 08/22/2023 the patient is here for a pulmonary follow-up visit. She still complaining of the same symptoms persistent dyspnea on exertion. She did go on a cruise in June she had all full-time she states. The patient had been diagnosed with exercise-induced pulmonary hypertension and she was prescribed a PD 5 inhibitor, tadalafil and the patient did start the medication. Although the the patient noted some cramps and she stop taking the medicine with a plant that she had call the office for her to restart the medicine. Although she never did. In the meantime she did see her recyclable materials distributor who will did additional evaluations. She was placed on Jardiance and she has noted some improvement as also weight loss which is helped her breathing. She is reassured that this medication is helping her cardiac issues. She is hoping to be able to continue the medication a week although she only has 1 week left. I did explain to her that the medication doc covered she should go back on the PD 5 inhibitor. Also, we did talk about pulmonary rehabilitation. Request pulmonary function studies at [facility] if subsequently refer her to pulmonary rehab at [facility] as this is her preference. 03/23/2024 the patient is here for a pulmonary follow-up visit. The patient is doing a lot better. She has responded very well to the Jardiance. She has not had to use the PD 5 inhibitor which is reassuring. The patient has had significant weight loss which is also helping her. Although recently she was at rehabilitation and she went into atrial fibrillation. She also had low blood pressure. We did check a blood pressure here and is systolic 100 which is better than it was before. She will be following up with Cardiology soon. From a respiratory status the patient has been using the inhaler as needed which is perfectly fine specially since it can precipitate atrial fibrillation. She has not required it often which is also reassuring. The patient has had significant weight loss in also isn't a better volume status which is making her respiratory system much better. She continues to participate in pulmonary rehabilitation. At this point the patient is doing well from a pulmonary standpoint and she will be following up in the spring. The patient has any issues prior to that she will call for an earlier assessment. [facility] Medical History (Updated 03/10/23 @ 16:52 by Rosalia Casas CNP) Pulmonary hypertension Anemia Dyspnea Bradyarrhythmia Asthma-COPD overlap syndrome Allergic rhinitis GERD (gastroesophageal reflux disease) Chronic bilateral low back pain Asthma Anxiety Afib Surgical History History of abdominoplasty Hx laparoscopic cholecystectomy Gallbladder attack H/O: hysterectomy H/O gastric bypass H/O cardiac radiofrequency ablation (~04/2020) Family History (Updated 01/02/23 @ 10:10 by Molly Cardona CMA) Mother HTN (hypertension) Dementia Father HTN (hypertension) Diabetes Sister Diabetes Social History (Updated 01/02/23 @ 10:10 by Molly Cardona CMA) Alcohol intake: never Patient Tobacco Use Status: Never used Tobacco Second Hand Smoke Exposure: No Review of Systems Const Denies night sweats ENT Denies change in voice, Denies lip swelling, Denies mouth pain, Reports nasal congestion, Reports nasal discharge and Denies tongue swelling Card Denies chest pain, Denies leg edema, Reports palpitations and Reports dyspnea on exertion Resp Reports cough and Reports dyspnea on exertion GI Denies abdominal pain Musc Denies no additional complaints Neuro Denies Neuro-related abnormal movements Psych Denies no additional complaints Endo Reports palpitations Tc/Lymph Denies easy bleeding and Denies lymphadenopathy Aller/Immun Denies lip swelling and Denies tongue swelling Physical Exam Vital Signs: Last Vital Signs Pulse 65 03/23/24 10:40 BP 102/58 L 03/23/24 10:40 Pulse Ox 94 03/23/24 10:40 Oxygen Delivery Method Room Air 03/23/24 10:40 BMI result Body Mass Index 33.2 Const General: alert Neck Neck: Yes normal visual inspection, Yes full ROM and Yes no lymphadenopathy Chest Chest palpation & inspection: normal inspection of the chest Resp Auscultation: no rales, no rhonchi, no wheezes and diminished lung sounds Cardio Rate: regular rate and tachycardic Rhythm: regular rhythm Heart sounds: S1 normal heart sound present, S2 normal heart sound present and Abnormal heart opening sounds loud S2 GI Palpation (GI): Soft to palpation and nontender Auscultation: normal bowel sounds Skin General skin exam: rashes and/or lesions noted Extrem General: Yes edema and Yes pedal edema Assessment & Plan Assessment & Plan (1) Asthma-COPD overlap syndrome: Code(s): J44.9 - Chronic obstructive pulmonary disease, unspecified Category: Medical (2) Dyspnea: Comment: volume overload Code(s): R06.00 - Dyspnea, unspecified Category: Medical Qualifiers: Dyspnea type: dyspnea on exertion Qualified Code(s): R06.00 - Dyspnea, unspecified (3) Pulmonary hypertension: Comment: Group 1, exercise indused Code(s): I27.20 - Pulmonary hypertension, unspecified Category: Medical Plan Continue Breztri 2puff BID as needed continue diuresis Needs to maintain low NA diet responding well Jardiace continue singulair KENY as needed continue Pulmonary rehab (pt prefers [facility]) Needs to have a cardiology, Dr Tabor follow-up 8-10 months Coding Level of Care Code Est Pt Level 4 (19087) Diagnoses Asthma-COPD overlap syndrome J44.9 Dyspnea on exertion R06.00 Dyspnea type: dyspnea on exertion Pulmonary hypertension I27.20 Time Spent (min) 16
[2024-03-23 10:40] VITALS: BP 102/58; PULSE 65; O2SAT 94; BMI 33.2
== END 2024-03-23 11:00 | disposition home or self-care (01) ==
PROVIDERS: PCP Internal Medicine; Visit Provider Hospitalist
DX: J44.9 Chronic obstructive pulmonary disease, unspecified (principal); R06.00 Dyspnea, unspecified; I27.20 Pulmonary hypertension, unspecified
CPT/HCPCS: 99214

== ENCOUNTER → 2024-03-23 10:33 | Outpatient (BNVA) | payer MEDICARE, BC, SELFPAY | PROVIDERS: PCP Internal Medicine; Visit Provider Hospitalist | DX: J44.9 Chronic obstructive pulmonary disease, unspecified (principal); R06.00 Dyspnea, unspecified; I27.20 Pulmonary hypertension, unspecified | CPT/HCPCS: 99212 ==

== ENCOUNTER 2024-12-15 10:56 | Outpatient (AMB) | payer MEDICARE, BC, SELFPAY ==
--- NOTE | 2024-12-15 10:58 | MHC.OFFVIS ---
Vital Signs 12/15/24 10:59 Height 5 ft 7 in Weight 217 lb 2.485 oz BMI 34.0 BP 110/60 Blood Pressure Location Rt brachial Position Sitting Pulse 63 Pulse Source Pulse Oximeter Pulse Oximetry (%) 99 Oxygen Delivery Method Room Air Intake Visit Reasons: Asthma Allergies No Known Allergies Allergy (Verified 12/15/24 11:04) HPI Comments Details: The patient is a 74-year-old woman with a former history of smoking, known COPD in addition to atrial fibrillation. She is status post recent cardioversion. Now she is being further evaluated for persistent tachyarrhythmias. In the meantime she has been complaining of shortness of breath and dyspnea. Moderate severity. She has tried multiple inhalers in the past. Currently she is using Spiriva and Symbicort. It is not clear how effective these inhalers are to her as she may not be using correctly. She is using a spacer but feels like the medication is skating the chamber. In the meantime the patient does have issues with peripheral vascular disease and varicose veins. She does state anticoagulation therapy and she is adherent to the therapy. Therefore thromboembolic disease be less likely. 04/03/2021 the patient is here for pulmonary follow-up visit. Since we last spoke the patient underwent a cardiac ablation at [facility]. was complicated by blood loss she was readmitted to the hospital and required 2 pt of blood. The patient has described feeling more fatigued more short of breath. She is not sure if it is from lung so the heart issue. We did measure her peak flow in the office and was 300. I did provide her with a nebulized treatment with DuoNeb x1 and then we repeated the peak flow and was still the same number. At this point she is maximize on her respiratory therapy. My suspicion is her dyspnea symptoms are mainly from her anemia and her ongoing cardiac issues. I was concerned with her heart rate that was in the low 40s. The patient does feel lightheaded at times. We did do a brief walking test and pulse ox did improved to the low 50s. The patient was symptomatic at time. Therefore, I did recommend that she follow-up with outdoor illuminating engineer soon to address the significant bradycardia that is likely contributing to her fatigue and dyspnea symptoms. 08/06/2021 the patient is here for a pulmonary follow-up visit. Overall the patient has been feeling better. She was started on respiratory therapy with Trelegy. [place] like it was not as helpful in she then was seen by her pony ride attendant who switched her over to Breztri. she feels the new inhaler has been very effective for her. Her shortness of breath is the crease. She has not had to use her rescue inhaler. She has not had to use the nebulized treatments. Recently she was diagnosed with cellulitis. She does have lower extremity edema. She needs to start wearing her compression stockings. Otherwise the patient is without any other complaints. 07/08/2022 The patient is here for a pulmonary follow up vist. She continue on the Breztri. Overall her breathing is better, except for the dyspnea on exertion. Moderate in severity. She has plan to go on a cruise in October and she is hoping to feel better. We did go on a brief walking oximetry and her pox was 96% and became dyspnea 03/17 once her HR was above 80. We will request a CXR and PFTS. Would likely benefit from a cardiology evaluation as well. 08/19/2022 the patient is here for a pulmonary follow-up visit. She continues to have dyspnea on exertion. Moderate severity with minimal activity. Typically does not bother her when she is doing her activities of daily living. However she has multiple trips plan starting in October and she is concerned that she is going to have a hard time with them. She did follow-up with cardiology and had a full workup. She also underwent pulmonary function studies demonstrating no obstructive nor restrictive ventilatory defects. She does have a mild diffusion impairment. But she did not result in the degree of dyspnea that she has. We talked about go ahead and requesting a cardiopulmonary exercise tolerance test to further address her dyspnea symptoms that at this time are ups care. We also did blood work and she does have a normal hemoglobin ruling out potential anemia sat etiology. The rest of the blood work was unremarkable. The patient also had a chest x-ray demonstrating no acute disease. 11/11/2022 the patient is here for a pulmonary follow-up visit. She is feeling ?terrible ?. She has got back from a cruise for about 12 days. She had a hard time with her breathing. It was very hot. She did have dietary indiscretions. Patient noticed that she has had significant weight gain. She gained about 18 lb during the trip. Afterwards she has lost some of the weight already. Her lower extremities are significantly swollen. Unfortunately because of the heat and also her significant ext edema she noticed worsening respiratory symptoms. She could barely walk from place to place. She had a horrible experience overall. Again, on exam she does have significant lower extremity edema with pitting edema up to the knees and thighs. We did have her undergo blood work including a brain atretic peptide which is elevated to 188. She the patient may have a component of heart failure. She has had a full cardiac workup without any significant findings however. She may have heart failure with a preserved EF or have some underlying pulmonary hypertension that resulting worsening right-sided heart failure. Therefore will go ahead and increase her diuretics. The patient also will be weighing herself daily and also taking additional interventions if her weight continues to be elevated patient will be requested to have a stress echo in order to assess her RV function specially when she is active and also hopefully we can measure pulmonary pressures to assess the question of pulmonary hypertension. At the inhalers are not very effective. She may have a component of sleep apnea although she will not use any oxygen or PAP therapy. Will recheck her overnight oximetry to make sure. 01/06/2023 the patient is here for pulmonary follow-up visit. She is still having issues with dyspnea on exertion. Moderate severity. She is doing a little better now that her fluid volume status is better controlled. Her regular echocardiogram demonstrated preserved EF. She did have a cardiopulmonary exercise study with echo demonstrating exercise-induced pulmonary hypertension secondary to pulmonary arterial hypertension. No evidence of any cardiac abnormalities and no evidence of any pulmonary disease. Therefore, will start the patient on sildenafil. We did have her go for 6 minute walk test prior to starting the medication which she was able to ambulate 950 ft. Will start the medication and then have her get a repeat study when she returns. She will continue with current respiratory therapy at this time. She did not qualify for oxygen which is reassuring. 08/22/2023 the patient is here for a pulmonary follow-up visit. She still complaining of the same symptoms persistent dyspnea on exertion. She did go on a cruise in June she had all full-time she states. The patient had been diagnosed with exercise-induced pulmonary hypertension and she was prescribed a PD 5 inhibitor, tadalafil and the patient did start the medication. Although the the patient noted some cramps and she stop taking the medicine with a plant that she had call the office for her to restart the medicine. Although she never did. In the meantime she did see her outdoor illuminating engineer who will did additional evaluations. She was placed on Jardiance and she has noted some improvement as also weight loss which is helped her breathing. She is reassured that this medication is helping her cardiac issues. She is hoping to be able to continue the medication a week although she only has 1 week left. I did explain to her that the medication doc covered she should go back on the PD 5 inhibitor. Also, we did talk about pulmonary rehabilitation. Request pulmonary function studies at [facility] if subsequently refer her to pulmonary rehab at [facility] as this is her preference. 03/23/2024 the patient is here for a pulmonary follow-up visit. The patient is doing a lot better. She has responded very well to the Jardiance. She has not had to use the PD 5 inhibitor which is reassuring. The patient has had significant weight loss which is also helping her. Although recently she was at rehabilitation and she went into atrial fibrillation. She also had low blood pressure. We did check a blood pressure here and is systolic 100 which is better than it was before. She will be following up with Cardiology soon. From a respiratory status the patient has been using the inhaler as needed which is perfectly fine specially since it can precipitate atrial fibrillation. She has not required it often which is also reassuring. The patient has had significant weight loss in also isn't a better volume status which is making her respiratory system much better. She continues to participate in pulmonary rehabilitation. At this point the patient is doing well from a pulmonary standpoint and she will be following up in the spring. The patient has any issues prior to that she will call for an earlier assessment. 12/15/2024 the patient is here for a pulmonary follow-up visit. The patient is feeling a lot better. She is currently on the Jardiance for her congestive heart failure history. This has been very effective in beneficial. She has also has significant amount of weight loss that is helping her overall breathing. She is still dealing with back pain and that is causing her to have some limitations walking. She is planning to go on a few bruises this year. She needs to know to watch for her sodium intake while on the cruise where he can affect her respiratory status with increased volume overload state. Her cardiac status appears to be better also because she recently underwent an ablation and seems to be working better and she is in normal sinus mechanism. From a respiratory status she is still has inhalers so she does not using regularly. Her last imaging study was reassuring. Therefore this point the patient will continue with current respiratory therapy and she can use it as needed she will follow-up in a year's time. If he develops any worsening symptoms she will call. Next year will talk about additional imaging studies. [facility] Medical History (Updated 03/10/23 @ 16:52 by Rosalia Casas CNP) Pulmonary hypertension Anemia Dyspnea Bradyarrhythmia Asthma-COPD overlap syndrome Allergic rhinitis GERD (gastroesophageal reflux disease) Chronic bilateral low back pain Asthma Anxiety Afib Surgical History History of abdominoplasty Hx laparoscopic cholecystectomy Gallbladder attack H/O: hysterectomy H/O gastric bypass H/O cardiac radiofrequency ablation (~04/2020) Family History (Updated 01/02/23 @ 10:10 by Molly Cardona [facility]) Mother HTN (hypertension) Dementia Father HTN (hypertension) Diabetes Sister Diabetes Social History Alcohol intake: never Patient Tobacco Use Status: Never used Tobacco Second Hand Smoke Exposure: No Review of Systems Const Denies night sweats ENT Denies change in voice, Denies lip swelling, Denies mouth pain, Reports nasal congestion, Reports nasal discharge and Denies tongue swelling Card Denies chest pain, Denies leg edema, Reports palpitations and Reports dyspnea on exertion Resp Reports cough and Reports dyspnea on exertion GI Denies abdominal pain Musc Denies no additional complaints Neuro Denies Neuro-related abnormal movements Psych Denies no additional complaints Endo Reports palpitations Tc/Lymph Denies easy bleeding and Denies lymphadenopathy Aller/Immun Denies lip swelling and Denies tongue swelling Physical Exam Vital Signs: Last Vital Signs Pulse 63 12/15/24 10:59 BP 110/60 12/15/24 10:59 Pulse Ox 99 12/15/24 10:59 Oxygen Delivery Method Room Air 12/15/24 10:59 BMI result Body Mass Index 34.0 Const General: alert Neck Neck: Yes normal visual inspection, Yes full ROM and Yes no lymphadenopathy Chest Chest palpation & inspection: normal inspection of the chest Resp Auscultation: clear to auscultation bilaterally, no rales, no rhonchi and no wheezes Cardio Rate: regular rate and tachycardic Rhythm: regular rhythm Heart sounds: S1 normal heart sound present, S2 normal heart sound present and Abnormal heart opening sounds loud S2 GI Palpation (GI): Soft to palpation and nontender Auscultation: normal bowel sounds Skin General skin exam: rashes and/or lesions noted Extrem General: Yes edema and Yes pedal edema Assessment & Plan Assessment & Plan (1) Asthma-COPD overlap syndrome: Code(s): J44.9 - Chronic obstructive pulmonary disease, unspecified Category: Medical (2) Dyspnea: Comment: volume overload Code(s): R06.00 - Dyspnea, unspecified Category: Medical Qualifiers: Dyspnea type: dyspnea on exertion Qualified Code(s): R06.00 - Dyspnea, unspecified (3) Pulmonary hypertension: Comment: Group 1, exercise indused Code(s): I27.20 - Pulmonary hypertension, unspecified Category: Medical Plan Continue Breztri 2puff BID as needed continue diuresis Needs to maintain low NA diet responding well Jardiace continue singulair KENY as needed FU cardiology, Dr Tabor follow-up 12 months Coding Level of Care Code Est Pt Level 4 (93384) Diagnoses Asthma-COPD overlap syndrome J44.9 Dyspnea on exertion R06.00 Dyspnea type: dyspnea on exertion Pulmonary hypertension I27.20 Time Spent (min) 16
[2024-12-15 10:59] VITALS: BP 110/60; PULSE 63; O2SAT 99; BMI 34.0
--- OUTSIDE RECORDS SUMMARY | 2024-12-15 12:52 | XMS_ITS ---
Author Organization [facility] Address [address] [place] [address] Care Team Providers Care Direct Care Staffer Name Role Phone Shaheed DOW, Randall Primary Care Provider Helen Bangura Gabriella Unavailable [phone] Allergies No Known Allergies REASON FOR VISIT Painful nail(s) aggrevated by shoes causing difficulty standing/walking, Toe Pain Medications Medication SIG (Take, Route, Frequency, Duration) Notes Start Date End Date Status Lamisil 250 250 MG 1 Tab Oral Daily for 90 10/18/2014 Not-Taking Breztri Aerosphere A ctive dilTIAZem HCl Active Ammonium Lactate 12 % 1 application Externally Twice a day for 30 days Active Adderall Active Singulair Not-Taking Cartia XT Not-Taking dilTIAZem HCl ER Coated Beads Not-Taking Sotalol HCl Not-Taki ng Symbicort Not-Taking Trelegy Ellipta Not- Taking Metoprolol Succinate ER 50 MG Oral for 90 Days Active zzzCompression Stockings 20-30mm Hg . . . for . Not-Taking Montelukast Sodium N ot-Taking amLODIPine Besylate Not-Taking Omeprazole 40 mg Act lucinda Torsemide Active Xarelto Active Compression Stockings 20-30mm Hg 1 pair wear daily for 30 days Active LORazepam PRN Active Jardiance Active Social History Tobacco Use: Social History Observation Description Date Details (start date - stop date) Never Smoker NA - NA Tobacco Use/Smoking Question Answer Notes Are you a: nonsmoker Additional Findings: Tobacco Non-User Current no n-smoker Alcohol Screen Question Answer Notes Did you have a drink containing alcohol in the p ast year? No Points 0 Interpretation Negative Tobacco use other than smoking: Question Answer Notes Are you an other tobacco user? No Vital Signs Height 5ft 8in in 08/10/2024 Weight 215 lbs 08/10/2024 BMI 32.69 kg/m2 08/10/2024 Procedures Procedure Date Ordered Date Performed Result Body Sit e 97126-HDHVASM NAIL, 6 OR MORE 08/10/2024 N/A 35544 I&D ABSCESS- SIMPLE,SINGLE 08/10/2024 N/A Encounters Encounter Location Date Provider Diagnosis [facility] [place] [address] [address] [facility] [address] 08/10/2024 Gabriella Bangura Tinea unguium B35.1 ; Abscess of toe, left L02.612 ; Pain in right toe(s) M79.674 and Pain in left toe(s) M79.675 Assessments Encounter Date Diagnosis (ICD Code) Assessment Notes Treatment Notes Treatment Clinical Notes Section Notes 08/10/2024 Tinea unguium (ICD-10 - B35.1) 08/10/2024 Abscess of toe, left (ICD-10 - L02.612) 08/10/2024 Pain in right toe(s) (ICD-10 - M79.674) 08/10/2024 Pain in left toe(s) (ICD-10 - M79.675) Plan Of Treatment Pending Test Test Name Order Date [id number] NAIL, 6 OR MORE 08/10/2024 53814 I&D ABSCESS- SIMPLE,SINGLE 024 Next Appt Details Follow Up: 2 Weeks, Reason: Provider Name:Gabreilla Bangura , 12/17/2024 11:15:00 AM, [address] [place], [address], Provider Name:Gabriella Bashir Willem , 02/18/2025 11:15:00 AM, [facility] [place] [address], [address], Procedure Notes * Category Sub-Category Detail Notes Debride Nail 6-10 Nail debridement Performance o f this nail treatment by a nonprofessional would put this patients foot and overall health at risk. Therefore, debridement to affected nail(s), as described in exam, was performed extensively to reduce/remove overall nail length, girth, thickness, subungual debris, and necrotic tissue, by manual and/or electrical means through the use of a nail nipper and/or dremel-type snag grinder, to a more viable healthy nail plate or bed tissue 6-10 nails in total. Silver nitrate was used for any petechial bleeding as necessary. Definitive antifungal treatment options, both pharmaceutical and surgical, have been reviewed and discussed with the patient. The patient solely prefers the use of intermittent/as needed professional debridement services for their nail condition and understands the need for additional periodic treatments to maintain effectiveness in symptomatic relief - 35213 Patient chooses debridement treatmen t only; no pharmaceutical tx I&D nail abscess Location Lateral nail rico rder, TA Procedure Performed incision a nd drainage of Single Nail Abscess with use of sterile nail nipper/316 blade. Approximately ( 0.1 ) cc purulent fluid material was drained. The infected devitalized soft tissue was curettaged to healthy bleeding bed. Any affected nail portion was removed to the eponychium . Any evidence of granuloma was also removed at this time. No underlying bone was visualized. There was minimal bleeding as hemostasis was achieved through the temporary use of either a digital tournaquet or the aforementioned local with epinephrine. An application of sterile Bacitracin dressing was performed. Local wound care instructions were discussed and dispensed. Recommended Tylenol or Motrin for pain/discomfort (68561), Pt defers matricectomy Type Single Anesthesia was accomplished TOP ICALLY with Lidocaine Hydrochloride Jelly 2 percent Progress Notes * Arcelia BROWN ObinnaDOB:1949 (74 yo F)Acc No.[id number]:08/10/2024 Progress Note Patient:Arcelia RODRIGUEZ Provider:?Gabriella Bangura DPM :1950???Age:74 Y???Sex:Female D ate:08/10/2024 Address:[address] [place] [id number] Pcp:Randall Hummel MD Subjective: * Chief Complaints: * ???Painful nail(s) aggrevate d by shoes causing difficulty standing/walkingToe Pain * HPI: ???Painful Nails:?Pt States Last PCP Visit:?Date:?10/22/2023 ???Toe pain:?Location:?Great toe, Left foot.? * ROS:?General/Constitutional:?Nausea?denies.?Vomiting?denies.?Hunger Thirst?denies.?Loss appetite?denies.?Chills?denies.?Fatigue?denies.?Fever?denies.?Night Sweats?denies.?Unexplained weight loss?denies.?Unexplained weight gain?denies.?HEENTM:?Dentures?denies.?Dizziness?denies.?Glasses/contacts?denies.?Retinopathy?de nies.?Blurred/double vision?denies.?TMJ?denies.?Discharge/drainage?denies.?Implants?denies.?Sore throat?denies.?Dental implants?denies.?Hard of hearing ?denies.?Difficulty chewing/swallowing/speaking?denies.?Nose bleeds?denies.?Sore mouth?denies.?Respiratory:?On Oxygen?denies.?Pneumonia/pleurisy?denies.?Bronchitis?denies.?Emphysema?denies.?C oughing?admits.?Cough blood?denies.?Shortness of breath?denies.?Wheezing?denies.?Cardiovascular:?Pacemaker?denies.?MVP?denies.?WPW?denies.?CHF?denies.?Heart attack?denies.?Septal defect?denies.?Rapid beat?denies.?Chest pain ?denies.?Atrial Fib.?denies.?Murmur/Palpitations?denies.?Gastrointestinal:?Hemorrhoids?denies.?Stomach/Abdominal pain?denies.?Dark blood stool?denies.?Irritable bowel ?denies.?Constipation?denies.?Diarrhea?denies.?Hematology:?Swelling?denies.?Clots?denies.?Varicose Veins?admits.?Bruising?admits, on anticoagulants.?Bleeding problem?admits, on anticoagulants.?Genitourinary:?Blood urine?denies.?Frequent/Painfu/urination/bladder control?denies.?Kidney stones?denies.?Infection (UTI)?denies.?Nephropathy?denies.?sex trans dis (STD)?denies.?Prostate?denies.?Musculoskeletal:?Hammertoes?admits.?Bunions?admits.?Back Pain?denies.?Muscle Cramps/ Resting?denies.?Muscle cramps / walking?denies.?Generalized aches and pains?denies.?Weakness?denies.?Integ.:?Mack?denies.?Scars?denies.?Corns/calluses?admits.?Ingrown nails?admits.?Painful nails?admits.?Open Sores?denies.?Rashes?denies.?Neurologic:?Difficulty sleeping?denies.?Brain disorder?denies.?Numbness?denies.?Balance trouble?denies.?Confusion?denies.?Fainting/blackouts?denies.?Tingling?denies.?Tr emors?denies.? * Medical History:? * Surgical History:?gastric by pass 2005hysterectomy, abdominal 2000gallbladder 2007 * Hospitalization/Major Diagno stic Procedure:?[facility]- Heart ablasion 04/15/20 * Family History:?Mother: dece ased, diagnosed with Unspecified essential hypertension.?Father: , poor circulation, diagnosed with Diabetic - NIDDM, Unspecified essential hypertension.?Siblings: diabetes, sister.?Spouse: alive.? * Social History:?Tobacco Use:?Tobacco Use/Smoking?Are you a:?nonsmoker ?Additional Findings: Tobacco Non-User?Current non-smoker ?Tobacco use other than smoking?Are you an other tobacco user??No ???Drugs/Alcohol:?Drugs?Have you used drugs other than those for medical reasons in the past 12 months??No ?Alcohol Screen?Did you have a drink containing alcohol in the past year??No ?Points?0 ?Interpretation?Negative ???Miscellaneous:?Caffeine: yes, frequency:, 3-5 cups per day. ?Children: yes. ?Exercise: no. ?Marital status: . ?Occupation: Retired. * Medications:?TakingAmmonium Lactate 12 % Cream 1 application Externally Twice a day Adderall Breztri Aerosphere dilTIAZem HCl Jardiance LORazepam , Notes to Pharmacist: PRNOmeprazole 40 mg Torsemide Xarelto Compression Stockings 20-30mm Hg closed toe- knee high 1 pair wear daily Metoprolol Succinate ER 50 MG Tablet Extended Release 24 Hour Oral Taking Ammonium Lactate 12 % Cream 1 application Externally Twice a day Taking Adderall Taking Breztri Aerosphere Taking dilTIAZem HCl Taking Jardiance Taking LORazepam , Notes to Pharmacist: PRNTaking Omeprazole 40 mg Taking Torsemide Taking Xarelto Taking Compression Stockings 20-30mm Hg closed toe- knee high 1 pair wear daily Taking Metoprolol Succinate ER 50 MG Tablet Extended Release 24 Hour Oral Not-Taking/PRNzzzCompression Stockings 20-30mm Hg 1 pair closed toe- knee high . . . Montelukast Sodium amLODIPine Besylate Trelegy Ellipta Sotalol HCl Symbicort Singulair Cartia XT dilTIAZem HCl ER Coated Beads Lamisil 250 250 MG Tablet 1 Tab Oral Daily Medication List reviewed and reconciled with the patientNot- Taking/PRN zzzCompression Stockings 20-30mm Hg 1 pair closed toe- knee high . . . Not- Taking/PRN Montelukast Sodium Not-Taking/PRN amLODIPine Besylate Not-Taking/PRN Trelegy Ellipta Not-Taking/PRN Sotalol HCl Not-Taking/PRN Symbicort Not-Taking/PRN Singulair Not-Taking/PRN Cartia XT Not-Taking/PRN dilTIAZem HCl ER Coated Beads Not- Taking/PRN Lamisil 250 250 MG Tablet 1 Tab Oral Daily Medication List reviewed and reconciled with the patient * Allergies:?N.K.D.A.yes[Aller gies Verified] Objective: * Vitals:?Ht: 5ft 8in, Wt:215, BMI:32.69, Shoe size: 8.5, Ht-cm: 172.72 cm, Wt-k.52 kg. * Examination: ???General Examination: ?GENERAL APPEARANCE:?good attention to hygiene, no acute distress, well developed, well nourished.?ORIENTED:?person, place, and time.?Dermatologic: ?SKIN FINDINGS:?Skin exam reveals normal color, texture, elasticity, and turgor. There are no masses, nor excrescences. The interspaces are clear, B/L.?Neurological: ?SENSORY:?Neurological exam reveals intact sensorium, pain sensation normal, vibration sensation intact, pinprick sensation is normal in the lower extremities, Pt denies, anesthesia, burning, paresthesia, tingling, B/L.?Vascular: ?DORSALIS PEDIS PULSE:?2/4, B/L.?POSTERIOR TIBIAL PULSE:?2/4, B/L.?CAPILLARY REFILL:?instantaneous, B/L.?TEMPERATURE GRADIENT:?within normal limits.?EDEMA:?+2/4 , non-pitting , B/L , leg , foot.?Nails: ?NAILS are:? Elongated, overgrown, dystrophic, lytic, greater than 3mm thick, discolored and friable with crumbly malodorous subungual debris, with pain on palpation,1-5 Right foot,2-5 Left foot.?Abscess/infected nail: ?INSPECTION?Reveals nail incurvation, pain on palpation, groove laceration, inflammation, malodor, localized cellulitis, and purulent abscess with pre- operative size of approximately ( 1-2 ) mm square without exposed bone, Lateral nail border, TA.? Assessment: * Assessment: 1.?Tinea unguium - B35.1???2 .?Abscess of toe, left - L02.612 (Primary)???3.?Pain in right toe(s) - M79.674???4.?Pain in left toe(s) - M79.675??? Plan: * Treatment: 2.?Tinea unguium?Procedure: 54300-NPKFQFQ NAIL, 6 OR MORE * Procedures:?Debride Nail 6-10:?Nail debridement?Performance of this nail treatment by a nonprofessional would put this patients foot and overall health at risk. Therefore, debridement to affected nail(s), as described in exam, was performed extensively to reduce/remove overall nail length, girth, thickness, subungual debris, and necrotic tissue, by manual and/or electrical means through the use of a nail nipper and/or dremel-type snag grinder, to a more viable healthy nail plate or bed tissue 6-10 nails in total. Silver nitrate was used for any petechial bleeding as necessary. Definitive antifungal treatment options, both pharmaceutical and surgical, have been reviewed and discussed with the patient. The patient solely prefers the use of intermittent/as needed professional debridement services for their nail condition and understands the need for additional periodic treatments to maintain effectiveness in symptomatic relief - 03736.?Patient chooses ?debridement treatment only; no pharmaceutical tx.?I&D nail abscess:?Type?Single.?Anesthesia?was accomplished TOPICALLY with Lidocaine Hydrochloride Jelly 2 percent.?Location?Lateral nail border, TA.?Procedure?Performed incision and drainage of Single Nail Abscess with use of sterile nail nipper/316 blade. Approximately ( 0.1 ) cc purulent fluid material was drained. The infected devitalized soft tissue was curettaged to healthy bleeding bed. Any affected nail portion was removed to the eponychium . Any evidence of granuloma was also removed at this time. No underlying bone was visualized. There was minimal bleeding as hemostasis was achieved through the temporary use of either a digital tournaquet or the aforementioned local with epinephrine. An application of sterile Bacitracin dressing was performed. Local wound care instructions were discussed and dispensed. Recommended Tylenol or Motrin for pain/discomfort (00809), Pt defers matricectomy.? * Procedure Codes:?39819 DEBRI DE NAIL, 6 OR MORE, Modifiers: XS 01401 DRAINAGE OF SKIN ABSCESS, Modifiers: TA * Follow Up:?2 Weeks * Images: * Sign off status: Completed true * Provider:?Gabriella Bangura DPM Date:?2023 Generated for Baron carson/Juventino/eTransmitting on:?12/15/2024 12:52 PM EDT History and Physical Notes * HPI (History of Present Illness) Category Sub-Category Detail Notes Category Not es Toe pain Location: Great toe, Left foot Painful Nails Pt States Last PCP Visit: Date:: 10/22/2023 Examination Category Sub-Category Detail Notes Category Not es Neurological SENSORY: Neurological exa m reveals intact sensorium, pain sensation normal, vibration sensation intact, pinprick sensation is normal in the lower extremities, Pt denies, anesthesia, burning, paresthesia, tingling, B/L Dermatologic SKIN FINDINGS: Skin exam reveal s normal color, texture, elasticity, and turgor. There are no masses, nor excrescences. The interspaces are clear, B/L Vascular DORSALIS PEDIS PULSE: 2/4, B/L EDEMA: +2/4 , non-pitting , B/L , leg , foot CAPILLARY REFILL: instantaneous, B/L TEMPERATURE GRADIENT: within normal limi ts POSTERIOR TIBIAL PULSE: 2/4, B/L General Examination GENERAL APPEARANCE: good att ention to hygiene, no acute distress, well developed, well nourished ORIENTED: person, place, and t ange Nails NAILS are: Elongated, overg rown, dystrophic, lytic, greater than 3mm thick, discolored and friable with crumbly malodorous subungual debris, with pain on palpation,1-5 Right foot,2-5 Left foot Abscess/infected nail INSPECTION Reveals na il incurvation, pain on palpation, groove laceration, inflammation, malodor, localized cellulitis, and purulent abscess with pre-operative size of approximately ( 1-2 ) mm square without exposed bone, Lateral nail border, TA
--- OUTSIDE RECORDS SUMMARY | 2024-12-15 12:52 | XMS_ITS ---
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 Name Role Phone Shaheed DOW, Randall Primary Care Provider Helen Bangura Gabriella Unavailable [phone] Allergies No Known Allergies REASON FOR VISIT Painful Toe(s), Open sore Medications Medication SIG (Take, Route, Frequency, Duration) Notes Start Date End Date Status Lamisil 250 250 MG 1 Tab Oral Daily for 90 10/18/2014 Not-Taking dilTIAZem HCl ER Coated Beads Not-Taking Ammonium Lactate 12 % 1 application Externally Twice a day for 30 days Active Singulair Not-Taking Cartia XT Not-Taking Symbicort Not-Taking amLODIPine Besylate Not-Taking Montelukast Sodium N ot-Taking Sotalol HCl Not-Taki ng Trelegy Ellipta Not- Taking Metoprolol Succinate ER 50 MG Oral for 90 Days Active zzzCompression Stockings 20-30mm Hg . . . for . Not-Taking Cephalexin 500 MG 1 capsule Orally twi ce a day for 10 days 10/13/2024 Active Compression Stockings 20-30mm Hg 1 pair wear daily for 30 days Active Xarelto Active Torsemide Active Omeprazole 40 mg Act lucinda dilTIAZem HCl Active LORazepam PRN Active Jardiance Active Adderall Active Breztri Aerosphere A ctive Social History Tobacco Use: Social History Observation Description Date Details (start date - stop date) Never Smoker NA - NA Tobacco use other than smoking: Question Answer Notes Are you an other tobacco user? No Tobacco Control (Standard) Question Answer Notes Tobacco use: Nonsmoker Additional Findings: Tobacco non-user Current no nsmoker AUDIT-C (Standard) Question Answer Notes Did you have a drink containing alcohol in the p ast year? No Points 0 Interpretation Negative Problems Problem Type SNOMED Code ICD Code Onset Dates Problem Status W/U Status Risk Notes Problem Acquired hammer toe of left foot (72210548586 88660) Hammer toe of left foot (M20.42) Active confirmed Resistant to previous conservative treatment,[facility] on for Surgery (4) Vital Signs Height 5ft 8in in 11/03/2024 Weight 215 lbs 11/03/2024 BMI 32.69 kg/m2 11/03/2024 Blood pressure systolic 120 mm Hg 11/03/19 25 Blood pressure diastolic 80 mm Hg 025 Encounters Encounter Location Date Provider Diagnosis [facility] [address] [facility] [place] [address] 11/03/2024 Gabriella Bangura Hammer toe of left foot M20.42 ; Cellulitis of left toe L03.032 and Skin ulcer of toe of left foot with fat layer exposed L97.522 Assessments Encounter Date Diagnosis (ICD Code) Assessment Notes Treatment Notes Treatment Clinical Notes Section Notes 11/03/2024 Hammer toe of left foot (ICD-10 - M20.42) Resistant to previous conservative treatment,[facility] n for Surgery (4) 11/03/2024 Cellulitis of left toe (ICD-10 - L03.032) 11/03/2024 Skin ulcer of toe of left foot with fat layer exposed (ICD-10 - L97.522) Plan Of Treatment Next Appt Details Follow Up: as scheduled, Aurelia son: Flexor release Provider Name:Gabriella Bangura , 12/17/2024 11:15:00 AM, [place], [address], Provider Name:Gabriella Bashir Willem , 02/18/2025 11:15:00 AM, [address] [place], [address], Progress Notes * Arcelia BROWNDOB:1949 (74 yo F)Acc No.[id number]:11/03/2024 Progress Notes Patient:?Arcelia BROWN Provider:?Gabriella Bangura DPM :1950???Age:74 Y???Sex:Female D ate:11/03/2024 Address:[address] [place], [place] [id number] Pcp:Randall Hummel MD Subjective: * Chief Complaints: * ???Painful Toe(s)Open sore * HPI: ???Toe pain:?Nature:?tenderness..?Location:?, 2nd toe, , Left foot.?Duration:?a year or more.?Course:?worse.?Aggravated by:?any pressure, shoes, standing/walking.?Treatments:?rest/alter normal daily activity, change in shoes, bracing/splinting/padding.?Skin problems:?Nature:?Open sore with cellultis.?Course:?improved.?Treatments:?Local care consisting of daily distilled water wound cleanse, topical and oral? antibiotic as recommended, application of sterile dressing, offloading/pressure reduction via rest, shoe modification, insert modification, accommodative padding, assisted ambulation via cane/ crutch/ walker/ wheel chair/ knee scooter, and surgical debridement.? * ROS:?General/Constitutional:?Nausea?denies.?Vomiting?denies.?Hunger Thirst?denies.?Loss appetite?denies.?Chills?denies.?Fatigue?denies.?Fever?denies.?Night Sweats?denies.?Unexplained weight loss?denies.?Unexplained [...] Surgical History:?gastric by pass 2005hysterectomy, abdominal 2000gallbladder 2006 * Hospitalization/Major Diagno stic Procedure:?[facility]- Heart ablasion 04/15/20 * Family History:?Mother: dece ased, diagnosed with Unspecified essential hypertension.?Father: , poor circulation, diagnosed with Diabetic - NIDDM, Unspecified essential hypertension.?Siblings: diabetes, sister.?Spouse: alive.? * Social History:?Tobacco Use:?Tobacco use other than smoking?Are you an other tobacco user??No ?Tobacco Control (Standard)?Tobacco use:?Nonsmoker ?Additional Findings: Tobacco non-user?Current nonsmoker ???Drugs/Alcohol:?Drugs?Have you used drugs other than those for medical reasons in the past 12 months??No ???Miscellaneous:?Caffeine: yes, frequency:, 3-5 cups per day. ?Children: yes. ?Exercise: no. ?Marital status: . ?Occupation: Retired. ???Drug/Alcohol:?AUDIT-C (Standard)?Did you have a drink containing alcohol in the past year??No ?Points?0 ?Interpretation?Negative * Medications:?TakingAmmonium Lactate 12 % Cream 1 application Externally Twice a day Adderall Breztri Aerosphere dilTIAZem HCl Jardiance LORazepam , Notes to Pharmacist: PRNOmeprazole 40 mg Torsemide Xarelto Compression Stockings 20-30mm Hg closed toe- knee high 1 pair wear daily Metoprolol Succinate ER 50 MG Tablet Extended Release 24 Hour Oral Cephalexin 500 MG Capsule 1 capsule Orally twice a day Taking Ammonium Lactate 12 % Cream 1 application Externally Twice a day Taking Adderall Taking Breztri Aerosphere Taking dilTIAZem HCl Taking Jardiance Taking LORazepam , Notes to Pharmacist: PRNTaking Omeprazole 40 mg Taking Torsemide Taking Xarelto Taking Compression Stockings 20-30mm Hg closed toe- knee high 1 pair wear daily Taking Metoprolol Succinate ER 50 MG Tablet Extended Release 24 Hour Oral Taking Cephalexin 500 MG Capsule 1 capsule Orally twice a day Not-Taking/PRNzzzCompression Stockings 20-30mm Hg 1 pair closed toe- knee high . . . Montelukast Sodium amLODIPine Besylate Trelegy Ellipta Sotalol HCl Symbicort Singulair Cartia XT dilTIAZem HCl ER Coated Beads Lamisil 250 250 MG Tablet 1 Tab Oral Daily Medication List reviewed and reconciled with the patientNot-Taking/PRN zzzCompression Stockings 20-30mm Hg 1 pair closed toe- knee high . . . Not-Taking/PRN Montelukast Sodium Not-Taking/PRN amLODIPine Besylate Not-Taking/PRN Trelegy Ellipta Not-Taking/PRN Sotalol HCl Not-Taking/PRN Symbicort Not-Taking/PRN Singulair Not-Taking/PRN Cartia XT Not-Taking/PRN dilTIAZem HCl ER Coated Beads Not-Taking/PRN Lamisil 250 250 MG Tablet 1 Tab Oral Daily Medication List reviewed and reconciled with the patient * Allergies:?N.K.D.A.yes[Aller gies Verified] Objective: * Vitals:?Ht: 5ft 8in, Wt:215, BMI:32.69, Shoe size: 8.5, BP:120/80mm Hg, Ht-cm: 172.72 cm, Wt-k.52 kg. * Examination: ???General Examination: ?GENERAL APPEARANCE:?good attention to hygiene, no acute distress, well developed, well nourished.?ORIENTED:?person, place, and time.?Dermatologic: ?SKIN FINDINGS:?, Skin shows sign(s) of, cellulitis with localized lymphangitis to 2 MTPJ left, approximately 100 percent LESS.?ULCER:?Dorsal, T1,resolved (+) erythema (-) calor (+) , epithelialized skin.?Orthopedic: ?DIGITAL DEFORMITIES:?Digital contracture, pain/swelling/redness/enlargement of PIPJ, T1 , incompl-reducible with WB, or to push-up test, no over, nor underlapping, Reveals bulbous distal digit and PIPJ with inflammation and Pain on Palpation.?Neurological: ?SENSORY:?Neurological exam reveals intact sensorium, pain sensation normal, vibration sensation intact, pinprick sensation is normal in the lower extremities, Pt denies, anesthesia, burning, paresthesia, tingling, B/L.?Vascular: ?DORSALIS PEDIS PULSE:?2/4, B/L.?POSTERIOR TIBIAL PULSE:?2/4, B/L.?CAPILLARY REFILL:?instantaneous, B/L.?TEMPERATURE GRADIENT:?within normal limits.?EDEMA:?+2/4 , non-pitting , B/L , leg , foot.? Assessment: * Assessment: 1.?Cellulitis of left toe - L03.032???Specify :Resolved???2.?Hammer toe of left foot - M20.42 (Primary)???Specify :Chronic problem, Worse (4)???Notes :Resistant to previous conservative treatment,Decision for Surgery (4)???3.?Skin ulcer of toe of left foot with fat layer exposed - L97.522???Specify :Resolved??? Plan: * Treatment: * Procedure Codes:? * Preventive Medicine:? ??Counseling:?Discussion:?-14: Office or other outpatient visit for the evaluation and management of an established patient, which required a medically appropriate history and/or examination and MODERATE level of DECISION MAKING for: 1 OR MORE CHRONIC PROBLEM(S) THATS WORSENING, 2 STABLE CHRONIC PROBLEMS, A NEWLY DIAGNOSED PROBLEM WITH UNCERTAIN PROGNOSIS, AN ACUTE COMPLICATED INJURY WITH MULTIPLE TREATMENT OPTIONS, OR AN ACUTE PROBLEM WITH ACCOMPANYING SYSTEMIC SYMPTOMS, THAT POSE(S) A MODERATE RISK OF MORBIDITY. THIS CONDITION MAY ALSO INCLUDE RX DRUG MANAGEMENT, OR A DECISON FOR MINOR SURGERY. The visit on the day of the encounter encompassed interpreting the data and educating the patient as to the nature of their condition, treatment options available according to their individual PMH, meds, allergies, and overall health/living conditions, as well as any potential risks or complications that may occur from a failure to adhere to, and participate in, the recommended course of therapy. The discussion included a complete verbal, and/or written explanation of the examination results, any x-rays taken, the proposed diagnosis, and outline of the treatment plan. A schedule for future care needs was also explained. The patient verbalized an understanding of the instructions at this time and agreed to be an active participant in their treatment. If the patient should think of any questions or concerns after the visit, I have encouraged the patient to call the office.?Digital Surgery:?FLEXOR : Minimal Incision digital procedure consisting of Percutaneous Flexor Release was discussed with the patient, including the risks of the procedure vs and not having the procedure, the potential procedure complications, the anesthesia, and the usual post-op course. No guarentees were given. We discussed with the patient the complications such as delayed/non healing, excessive scarring, excessive swelling, failure of procedure, floppy toe, infection, numbness, chronic pain, recurrence of the condition, shortened toe, joint stiffness, and possible loss of limb/life. Alternatives to the procedure were also discussed, including conservative care, The patient would like to procede with surgical treatment, and she will call the office to schedule due to upcoming trip to [place].?F/u Visit:?The Pt. was counseled on the remaining treatment options and importance of adherence to recomm; the Pt wishes to continue present [facility] longer.?Ulcer:?PREVENTIVE STRATEGIES were reviewed with the patient to avoid recurrent ulceration. A set of verbal and written instructions regarding proper daily diabetic footcare techniques was discussed and dispensed. The patient is to pay close attention to skin hydration by maintaining proper moisturization through correct water consumption and consistent application of skin lotions/creams/ointments. They are also to perform regular visual and tactile foot inspections for any interruption in skin integrity including cracks, open lesions, and immediately report to the office any sign of infection such as redness/malodor/drainage/swelling. We discussed and recommended practices and procedures regarding regular shoe and insert evaluations for the presence of foreign bodies as well as for any irregular shoe or insert wear. We reinforced the importance for the patient to adhere to wearing their orthopedic shoes and pressure accommodative innersoles whenever walking. We stressed the significant value for the patient to remain consistent concerning their medically prescribed diet, participate in regular nonweight-bearing exercise (seated weights, exercise bike, or swimming), and keep their scheduled at risk foot care podiatric appointments. We also reviewed the possible role for additional Rx foot/leg bracing or surgical intervention when/if medically warranted.? * Follow Up:?as scheduled ([place] son: Flexor release) * Images: * Sign off status: Completed true * Provider:?Gabriella Bangura DPM Date:?2024 Generated for Baron carson/Juventino/Dalila on:?12/15/2024 12:52 PM EDT History and Physical Notes * HPI (History of Present Illness) Category Sub-Category Detail Notes Category Not es Toe pain Nature: tenderness. Location: , 2nd toe, , Left fo ot Duration: a year or more Course: worse Aggravated by: any pressure, shoes, standing/walking Treatments: rest/alter normal da john activity, change in shoes, bracing/splinting/padding Skin problems Nature: Open sore with cellultis Course: improved Treatments: Local care consistin g of daily distilled water wound cleanse, topical and oral antibiotic as recommended, application of sterile dressing, offloading/pressure reduction via rest, shoe modification, insert modification, accommodative padding, assisted ambulation via cane/ crutch/ walker/ wheel chair/ knee scooter, and surgical debridement Examination Category Sub-Category Detail Notes Category Not es Neurological SENSORY: Neurological exa m reveals intact sensorium, pain sensation normal, vibration sensation intact, pinprick sensation is normal in the lower extremities, Pt denies, anesthesia, burning, paresthesia, tingling, B/L Dermatologic SKIN FINDINGS: , Skin shows sig n(s) of, cellulitis with localized lymphangitis to 2 MTPJ left, approximately 100 percent LESS ULCER: Dorsal, T1,resolved (+) erythema (-) calor (+) , epithelialized skin Orthopedic DIGITAL DEFORMITIES: Digital con tracture, pain/swelling/redness/enlargement of PIPJ, T1 , incompl-reducible with WB, or to push-up test, no over, nor underlapping, Reveals bulbous distal digit and PIPJ with inflammation and Pain on Palpation Vascular DORSALIS PEDIS PULSE: 2/4, B/L EDEMA: +2/4 , non-pitting , B/L , leg , foot CAPILLARY REFILL: instantaneous, B/L TEMPERATURE GRADIENT: within normal limi ts POSTERIOR TIBIAL PULSE: 2/4, B/L General Examination GENERAL APPEARANCE: good att ention to hygiene, no acute distress, well developed, well nourished ORIENTED: person, place, and t ange
--- OUTSIDE RECORDS SUMMARY | 2024-12-15 12:52 | XMS_ITS | Patient Health Record ---
Author Organization [facility] Address [address] [place] [address] Care Team Providers Care Nike Athlete Name Role Phone Shaheed DOW, Randall Primary Care Provider Gabriella Salgado Unavailable [phone] Carlos Matias Unavailable [phone] Allergies No Known Allergies Reason For Referral No Information Medications Medication SIG (Take, Route, Frequency, Duration) Notes Start Date End Date Status Metoprolol Succinate ER 50 MG Oral for 90 Days Active Lamisil 250 250 MG 1 Tab Oral Daily for 90 10/18/2014 Not-Taking dilTIAZem HCl ER Coated Beads Not-Taking Adderall Active zzzCompression Stockings 20-30mm Hg . . . for . Not-Taking Ammonium Lactate 12 % 1 application Externally Twice a day for 30 days Active Cephalexin 500 MG 1 capsule Orally twi ce a day for 10 days 10/13/2024 Active Torsemide Active Singulair Not-Taking Omeprazole 40 mg Act lucinda Symbicort Not-Taking Compression Stockings 20-30mm Hg 1 pair wear daily for 30 days Active Xarelto Active Cartia XT Not-Taking dilTIAZem HCl Active amLODIPine Besylate Not-Taking Breztri Aerosphere A ctive Montelukast Sodium N ot-Taking LORazepam PRN Active Sotalol HCl Not-Taki ng Jardiance Active Trelegy Ellipta Not- Taking Immunizations Vaccine Route Administration Date Status Comme nts COVID-19 Moderna Vaccine Unknown 12/02/2020 Administered 1st vaccine 10/10 Social History Tobacco Use: Social History Observation [...] Status W/U Status Risk Notes Problem Acquired hallux valgus (27223057) Hallux valgus (acquired) , left foot (M20.12) Active confirmed Problem Acquired hallux valgus (81179441) Hallux valgus (acquired) , right foot (M20.11) Active confirmed Problem Onychomycosis (686879045) Tinea unguium (B35.1) Active confirmed Problem Acquired hammer toe of right foot (788926788777167 5) Other hammer toe(s) (acquired) , right foot (M20.41) Active confirmed Problem Acquired hammer toe of left foot (066872639917380 3) Hammer toe of left foot (M20.42) Active confirmed Resistant to previous conservative treatment,Decis ion for Surgery (4) Problem Ulcer of toe (543207449) Skin ulcer of toe of left foot with fat layer exposed (L97.522) Active confirmed Vital Signs Blood pressure diastolic 80 mm Hg 11/03/2024 Height 5ft 8in in 11/03/2024 Blood pressure systolic 120 mm Hg 11/03/2024 Weight 215 lbs 11/03/2024 BMI 32.69 kg/m2 11/03/2024 Procedures Procedure Date Ordered Date Performed Result Body Sit e 81853-Myzjjssa Plate 01/13/2024 N/A 61118-CWAZWBY NAIL, 6 OR MORE 03/02/2024 N/A 60851-Boalszpa Plate 03/02/2024 N/A 95320-Ywkc. Subungual Hematoma 06/04/2024 N/A 42318-FDJKJCK NAIL, 6 OR MORE 08/10/2024 N/A 93316 I&D ABSCESS- SIMPLE,SINGLE 08/10/2024 N/A 72693-MWWFKVD NAIL, 6 OR MORE 10/13/2024 N/A 21049-DFRYUSN SKIN/TISSUE 10/13/2024 N/A Encounters Encounter Location Date Provider Diagnosis [facility] [place] [address] [place] [address] 01/13/2024 Gabriella Black Ingrown nail L60.[address] [facility] [place] [address] 03/02/2024 Gabriella Black Tinea unguium B35.1 ; Ingrown nail L60.0 ; Pain in right toe(s) M79.674 ; Pain in left toe(s) M79.675 and Xerosis of skin L85.3 [facility] [address] [address] 06/04/2024 Carlos Matias Tinea unguium B35.1 ; Ingrown nail L60.0 ; Pain in right toe(s) M79.674 ; Pain in left toe(s) M79.675 ; Subungual hematoma of toenail of right foot, initial encounter S90.221A ; Hallux valgus (acquired), left foot M20.12 ; Hallux valgus (acquired), right foot M20.11 ; Other hammer toe(s) (acquired), right foot M20.41 and Other hammer toe(s) (acquired), left foot M20.[address] [place] [address] 08/10/2024 Gabriella Black Tinea unguium B35.1 ; Abscess of toe, left L02.612 ; Pain in right toe(s) M79.674 and Pain in left toe(s) M79.[address] [address] 10/13/2024 Gabriella Black Tinea unguium B35.1 ; Cellulitis of left toe L03.032 ; Pain in right toe(s) M79.674 ; Pain in left toe(s) M79.675 and Skin ulcer of toe of left foot with fat layer exposed L97.[address] [address] 11/03/2024 Gabriella Black Hammer toe of left foot M20.42 ; Cellulitis of left toe L03.032 and Skin ulcer of toe of left foot with fat layer exposed L97.522 [facility] [place] [address] [facility] [place] [address] 01/13/2024 Gabriella Willem [facility] [place] [address] [facility] [place] [address] 04/20/2024 Gabriella Black [facility] [place] [address] [place] [address] 05/11/2024 [facility] [place] [address] [place] [address] [address] [place] [address] 06/04/2024 Gabriellayuki Bangura [facility] Encounter Date Diagnosis (ICD Code) Assessment Notes Treatment Notes Treatment Clinical Notes Section Notes 01/13/2024 Ingrown nail (ICD-10 - L60.0) 03/02/2024 Tinea unguium (ICD-10 - B35.1) 03/02/2024 Ingrown nail (ICD-10 - L60.0) 06/04/2024 Tinea unguium (ICD-10 - B35.1) 08/10/2024 Tinea unguium (ICD-10 - B35.1) 08/10/2024 Abscess of toe, left (ICD-10 - L02.612) 10/13/2024 Cellulitis of left toe (ICD-10 - L03.032) c 10/13/2024 Tinea unguium (ICD-10 - B35.1) c 11/03/2024 Cellulitis of left toe (ICD-10 - L03.032) 11/03/2024 Hammer toe of left foot (ICD-10 - M20.42) Resistant to previous conservative treatment,Decisio n for Surgery (4) 11/03/2024 Skin ulcer of toe of left foot with fat layer exposed (ICD-10 - L97.522) 10/13/2024 Pain in right toe(s) (ICD-10 - M79.674) c 03/02/2024 Pain in right toe(s) (ICD-10 - M79.674) 08/10/2024 Pain in right toe(s) (ICD-10 - M79.674) 06/04/2024 Pain in right toe(s) (ICD-10 - M79.674) 06/04/2024 Ingrown nail (ICD-10 - L60.0) 03/02/2024 Pain in left toe(s) (ICD-10 - M79.675) 06/04/2024 Pain in left toe(s) (ICD-10 - M79.675) 08/10/2024 Pain in left toe(s) (ICD-10 - M79.675) 10/13/2024 Pain in left toe(s) (ICD-10 - M79.675) c 10/13/2024 Skin ulcer of toe of left foot with fat layer exposed (ICD-10 - L97.522) c 06/04/2024 Subungual hematoma of toenail of right foot, initial encounter (ICD-10 - S90.221A) 03/02/2024 Xerosis of skin (ICD-10 - L85.3) 06/04/2024 Hallux valgus (acquired), left foot (ICD-10 - M20.12) 06/04/2024 Hallux valgus (acquired), right foot (ICD-10 - M20.11) 06/04/2024 Other hammer toe(s) (acquired), right foot (ICD-10 - M20.41) 06/04/2024 Other hammer toe(s) (acquired), left foot (ICD-10 - M20.42) Plan Of Treatment Pending Test Test Name Order Date *Liver Function Test (LFT) 10/11/2014 *Liver Function Test (LFT) 02/01/2016 *Liver Function Test (LFT) 05/02/2016 10611-WUPMQLJ NAIL, 6 OR MORE 05/02/2016 71386-HWKMUIL NAIL, 6 OR MORE 05/31/2015 04671-QXSJJTO NAIL, 6 OR MORE 08/10/2015 99216-CIMJUKM NAIL, 6 OR MORE 11/03/2015 05419-JMVCYPC NAIL, 6 OR MORE 02/01/2016 19199-KSCVTCO NAIL, 6 OR MORE 12/20/2014 45520-QBAITTJ NAIL, 6 OR MORE 03/09/2015 65614-TXYLZZU NAIL, 6 OR MORE 01/16/2012 03514-ZOOVIKX NAIL, 6 OR MORE 08/06/2012 51409-CIUVHYF NAIL, 6 OR MORE 02/18/2013 19060-LFAUVZY NAIL, 6 OR MORE 07/01/2013 75251-TMVPIHY NAIL, 6 OR MORE 12/06/2013 75953-FBYBGUQ NAIL, 6 OR MORE 10/11/2014 02163-LVBNUDA NAIL, 6 OR MORE 01/07/2017 30097-PMIFUKW NAIL, 6 OR MORE 04/04/2017 96768-LJJIUST NAIL, 6 OR MORE 07/04/2017 99971-VZXVUZS NAIL, 6 OR MORE 10/07/2017 35748-IGZJYQL NAIL, 6 OR MORE 01/12/2018 27636-ESIDQUP NAIL, 6 OR MORE 09/22/2018 26271-OLVALMM NAIL, 6 OR MORE 12/01/2018 83333-YUYBIVA NAIL, 6 OR MORE 02/23/2019 35809-UMPCSOS NAIL, 6 OR MORE 06/07/2019 79980-LPMGLNC NAIL, 6 OR MORE 09/13/2019 23798-WUAGBGX NAIL, 6 OR MORE 11/16/2019 09649-DLEIBOR NAIL, 6 OR MORE 02/14/2020 04160-EYYQFCZ NAIL, 6 OR MORE 05/08/2020 40326-OUQPSAQ NAIL, 6 OR MORE 03/17/2018 20497-AFGOJIY NAIL, 6 OR MORE 06/23/2018 27775-PRTRFVI NAIL, 6 OR MORE 07/18/2020 27796-OGXBIYX NAIL, 6 OR MORE 11/01/2020 82684-DMNAOHW NAIL, 6 OR MORE 01/23/2021 48493-YTNGPBW NAIL, 6 OR MORE 04/24/2021 44945-BBSSWFK NAIL, 6 OR MORE 12/11/2021 58010-RVZMCGK NAIL, 6 OR MORE 04/05/2022 29468-IVTMYFU NAIL, 6 OR MORE 08/16/2022 09416-SJAQWJT NAIL, 6 OR MORE 10/23/2022 28612-LVYBUYU NAIL, 6 OR MORE 03/26/2023 84904-BRRCRJV NAIL, 6 OR MORE 06/25/2023 99596-MJXDZXE NAIL, 6 OR MORE 11/27/2023 76816-LVLNYIE NAIL, 6 OR MORE 07/30/2021 85968-PEHVOGM NAIL, 6 OR MORE 09/26/2021 67712-HKVHHQE NAIL, 6 OR MORE 03/02/2024 44190-OPUQJYG NAIL, 6 OR MORE 08/10/2024 69292-WPJQMYG NAIL, 6 OR MORE 10/13/2024 99164-Psiy Destruction, 1-14 04/24/2021 35777-Ujrp Destruction, -14 07/30/2021 34580-Huyl Destruction, 1-14 01/23/2021 03492-Zlma Destruction, -14 11/01/2020 63574-Zxbv Destruction, -14 07/18/2020 97919-Jqfcvjgi Plate 10/07/2017 20072-Loperasf Plate 05/31/2015 28213-Yoxicntf Plate 10/09/2016 81126-Wzypzgkx Plate 09/22/2018 59616-Euntcebi Plate 03/17/2018 69167-Qjgydedi Plate 11/01/2020 61538-Mmaucaha Plate 05/28/2021 63413-Jjhugfdw Plate 02/14/2021 73055-Irphvxof Plate 04/24/2021 45286-Softqomb Plate 12/11/2021 45565-Mvcfuffj Plate 09/26/2021 75242-Wrcxnlsb Plate 01/13/2024 84215-Ibzedrrf Plate 03/02/2024 35340-Yjvzssqe Plate Each Additional 09513-Uupmysyd Plate Each Additional 06/2018 62724- Debride <25 sq cm 02/27/2021 42761-ATHPEHB SKIN/TISSUE 10/13/2024 40147 I&D ABSCESS- SIMPLE,SINGLE 024 38357-Qxge. Subungual Hematoma 4 Nail Panel 07/04/2017 Next Appt Details Provider Name:Gabriella Bashir Willem , 12/17/2024 11:15:00 AM, [address] [place], [address], Provider Name:Gabriella Bangura , 02/18/2025 11:15:00 AM, [address] [place], [address], Insurance Providers Payer Name Payer Address Payer Phone Subscriber Number Group Number Insured Name Patient Relationship to Insured Coverage Start Date Coverage End Date Medicare National [employer] [address] [place] [address] [id number] Arcelia Brown Self - patient is the insured [facility] [address] [place] [address] [id number] Arcelia Brown Self - patient is the insured Medical (General) History Medical History History ICD Code chicken pox measles reflux Surgical History Surgery Date(Month/Year) gastric bypass 2004 hysterectomy, abdominal 1999 gallbladder 2006 Hospitalization History Reason Date(Month/Year) [facility]- Heart ablasion 04/15/20
--- OUTSIDE RECORDS SUMMARY | 2024-12-15 12:53 | XMS_ITS | Clinical Summary ---
Author Organization [facility] Address [address] [place] [address] Care Team Providers Care Internet Marketing Intern Name Role Phone Randall [place] Primary Care Provider [phone] Allergies No known active allergies Medications sotalol (BETAPACE) tablet 120 mg Take 120 mg by mouth 2 times a day. 0 Active venlafaxine XR (EFFEXOR XR) 37.5 mg capsule TAKE 1 CAPSULE BY MOUTH ONCE DAILY WITH FOOD 1 Active cetirizine (ZyrTEC) 10 mg tablet TAKE 1 TABLET BY MOUTH ONCE DAILY FOR 30 DAYS 0 Active Xarelto 20 mg tablet TAKE 1 TABLET BY MOUTH ONCE DAILY WITH EVENING MEAL 1 Active clonazePAM (KlonoPIN) 0.5 mg tablet TAKE 1 TABLET BY MOUTH ONCE DAILY NEEDED FOR 30 DAYS 1 Active omeprazole (PriLOSEC) 40 mg capsule Take 40 mg by mouth daily. Active montelukast (SINGULAIR) 10 mg tablet Take 10 mg by mouth nightly. Active multivitamin capsule Take 1 capsule by mouth daily. Active oxyCODONE-aceta minophen (PERCOCET) 5-325 mg tablet Take 7.5 tablets by mouth. Active tiotropium (SPIRIVA HANDIHALER) 18 mcg inhalation capsule Inhale 1 capsule via handihaler daily. Active Active Problems Problem Noted Date Diagnosed Date Paroxysmal atrial fibrillation 11/20/2020 Social History Tobacco Use Types Packs/Day Years Used Date Smoking Tobacco: Never Assessed Comments Unknown Sex and Gender Information Value Date Recorded Sex Assigned at Not on file Legal Sex Female 6:44 PM EDT Gender Identity Not on file Sexual Orientation Not on file Last Filed Vital Signs Vital Sign Reading Time Taken Comments Blood Pressure 117/72 11/20/2020 8:49 AM EDT Pulse 78 11/20/2020 8:49 AM EDT Temperature - - Respiratory Rate 16 11/20/2020 8:49 AM EDT Oxygen Saturation 97% 11/20/2020 8:49 AM EDT Inhaled Oxygen Concentration - - Weight 112.5 kg (248 lb) 11/20/2020 8:49 AM EDT Height 170.2 cm (5' 7 ) 11/20/2020 8:49 AM EDT Body Mass Index 38.84 11/20/2020 8:49 AM EDT Plan of Treatment Health Maintenance Due Date Last Done Comments Cologuard 1949 Colon Cancer Screening 1949 Colonoscopy 1949 FOBT / Fit Test 1949 Sigmoidoscopy 1949 DTaP,Tdap,and Td Vaccines (1 - Tdap) 1971 Osteoporosis Screening 1999 Pneumococcal Vaccine: 50+ Ye ars (1 of 1 - PCV) 1999 Zoster Vaccines (1 of 2) 1999 COVID-19 Vaccine (2 - 2023-2 5 season) 2024 11/04/2020 RSV Vaccine (60+ years old a nd patients) (1 - 1-dose 75+ series) 2024 Alcohol/Substance Use Screening 09/08/2024 Health Care Proxy Review 09/08/2024 Influenza Vaccine (Season Ended) 2025 Hepatitis B Vaccines Aged Out No long er eligible based on patient's age to complete this topic Insurance [facility] FEDERAL MEDICARE Care Teams Internet Marketing Intern Relationship Specialty Start Date End Date Randall Hummel [address] [place] [phone] PCP - General Internal Medicine 11/02/20
--- OUTSIDE RECORDS SUMMARY | 2024-12-15 12:53 | XMS_ITS | Referral Summary ---
Author Organization [facility] Address [address] [place] [address] Care Team Providers Care Handicrafts Teacher Name Role Phone Randall Hummel Primary Care Provider [phone] Allergies No known active allergies Medications sotalol [...] 11/20/2020 8:49 AM EDT Plan of Treatment Not on file Insurance [facility] FEDERAL MEDICARE Care Teams Handicrafts Teacher Relationship Specialty Start Date End Date Randall Hummel [address] [place] [id number] PCP - General Internal Medicine 11/02/20
--- OUTSIDE RECORDS SUMMARY | 2024-12-15 12:53 | XMS_ITS ---
Author Organization [facility] Address [address] [place] [address] Care Team Providers Care Supervisor Education Name Role Phone Shaheed DOW, Randall Primary Care Provider Helen Bangura Gabriella Unavailable [phone] Allergies No Known Allergies REASON FOR VISIT Painful nail(s) aggrevated by shoes causing difficulty standing/walking, Toe Pain Medications Medication SIG (Take, Route, Frequency, Duration) Notes Start Date End Date Status Lamisil 250 250 MG 1 Tab Oral Daily for 90 10/18/2014 Not-Taking Singulair Not-Taking Symbicort Not-Taking dilTIAZem HCl ER Coated Beads Not-Taking Cartia XT Not-Taking Montelukast Sodium N ot-Taking zzzCompression Stockings 20-30mm Hg . . . for . Not-Taking Trelegy Ellipta Not- Taking amLODIPine Besylate Not-Taking Sotalol HCl Not-Taki ng Metoprolol Succinate ER 50 MG Oral for 90 Days Active Compression Stockings 20-30mm Hg 1 pair wear daily for 30 days Active Omeprazole 40 mg Act lucinda Xarelto Active Torsemide Active Adderall Active dilTIAZem HCl Active Breztri Aerosphere A ctive LORazepam PRN Active Jardiance Active Ammonium Lactate 12 % 1 application Externally Twice a day for 30 days Active Cephalexin 500 MG 1 capsule Orally twi ce a day for 10 days 10/13/2024 Active Social History Tobacco Use: Social History [...] Problem Status W/U Status Risk Notes Problem Ulcer of toe (838396817) Skin ulcer of toe of left foot with fat layer exposed (L97.522) Active confirmed Vital Signs Height 5ft 8in in 10/13/2024 Weight 215 lbs 10/13/2024 BMI 32.69 kg/m2 10/13/2024 Blood pressure systolic 120 mm Hg 10/13/19 25 Blood pressure diastolic 80 mm Hg 025 Procedures Procedure Date Ordered Date Performed Result Body Sit e 55283-IQXPGYM NAIL, 6 OR MORE 10/13/2024 N/A [id number] SKIN/TISSUE 10/13/2024 N/A Encounters Encounter Location Date Provider Diagnosis [facility] [address] 10/13/2024 Gabriella Black Tinea unguium B35.1 ; Cellulitis of left toe L03.032 ; Pain in right toe(s) M79.674 ; Pain in left toe(s) M79.675 and Skin ulcer of toe of left foot with fat layer exposed L97.522 Assessments Encounter Date Diagnosis (ICD Code) Assessment Notes Treatment Notes Treatment Clinical Notes Section Notes 10/13/2024 Tinea unguium (ICD-10 - B35.1) c 10/13/2024 Cellulitis of left toe (ICD-10 - L03.032) c 10/13/2024 Pain in right toe(s) (ICD-10 - M79.674) c 10/13/2024 Pain in left toe(s) (ICD-10 - M79.675) c 10/13/2024 Skin ulcer of toe of left foot with fat layer exposed (ICD-10 - L97.522) c Plan Of Treatment Medication Medication Name Sig Start Date Stop Date Notes Cephalexin 500 MG 1 capsule Orally twice a day for 10 days 10/13/2024 Pending Test Test Name Order Date [id number] NAIL, 6 OR MORE 10/13/2024 [id number] SKIN/TISSUE 10/13/2024 Next Appt Details Follow Up: 2 Weeks, Reason: Provider Name:Gabriella Bangura , 12/17/2024 11:15:00 AM, [address] [place], [id number], Provider Name:Gabriella Bangura , 02/18/2025 11:15:00 AM, [address] [place], [id number], Procedure Notes * Category Sub-Category Detail Notes Debride Nail 6-10 Nail debridement Due to the cl inical pathology outlined in the exam findings, performance of this nail treatment is medically necessary as its management by an unskilled/untrained nonprofessional would put this patients foot and overall health at risk. Therefore, debridement to affected nail(s), as described in exam ( TA, T2, T3, T4, T5, T6, T7, T8, T9), was performed exclusively by the physician of record to reduce/remove overall nail length, girth, thickness, subungual debris, and necrotic tissue, by manual and/or electrical means through the use of a nail nipper and/or dremel-type grinder needle tip, to a more viable healthy nail plate [...] to maintain effectiveness in symptomatic relief - 26541 Patient chooses debridement treatmen t only; no pharmaceutical tx Debride skin and subQ Open wound Physician of record performed open wound selective debridement of devitalized necrotic/nonviable soft tissue, fibrin, exudate, epidermis, dermis, thru skin and subcutaneous fat tissue, first 20 sq cm or less, using sharp dissection with sterile 15 blade, and/or tissue nippers. ANESTHESIA was accomplished TOPICALLY with Lidocaine Hydrochloride Jelly 2 percent, Sterile antibiotic dressing applied. Hemostasis was controlled through direct pressure. Post debridement measurements: 7 mm x 7 mm x 3 mm. Character of the wound post debriement is stable (35480) Progress Notes * Arcelia BROWNB:1949 (74 yo F)Acc No.[id number]:10/13/2024 Progress Note Patient:?Arcelia BROWN Provider:?Gabriella Bangura DPM :1950???Age:74 Y???Sex:Female D ate:10/13/2024 Address:[address] [place], [place] [id number] Pcp:Randall Hummel MD Subjective: * Chief Complaints: * ???Painful nail(s) aggrevate d by shoes causing difficulty standing/walkingToe Pain * HPI: ???Painful Nails:?Pt States Last PCP Visit:?Date:?06/08/2024 ???Toe pain:?Nature:?inflammed,open sore , red?.?Location:?, 2nd toe, Left foot.?Duration:?several days.?Onset/Cause:?shoe gear.? * ROS:?General/Constitutional:?Nausea?denies.?Vomiting?denies.?Hunger Thirst?denies.?Loss appetite?denies.?Chills?denies.?Fatigue?denies.?Fever?denies.?Night Sweats?denies.?Unexplained weight loss?denies.?Unexplained [...] patient * Allergies:?N.K.D.A.yes[Aller gies Verified] Objective: * Vitals:?Ht:5ft 8in, Wt:215, BMI:32.69, Shoe size:8.5, BP:120/80mm Hg, Ht-cm: 172.72 cm, Wt-k.52 kg. * Examination: ???General Examination: ?GENERAL APPEARANCE:?good attention to hygiene, no acute distress, well developed, well nourished.?ORIENTED:?person, place, and time.?Dermatologic: ?SKIN FINDINGS:?, Skin shows sign(s) of, cellulitis with localized lymphangitis to 2 MTPJ left.?ULCER:?Dorsal, T1, LOCATION, SIZE, 5mm X 5mm X 3mm, BASE, fibro-granular, RIM, hyperkeratotic, UNDERMINING, mild, TRACKING, Sub Q with Fat layer exposed, DRAINAGE, serosanguineous, moderate, NECROTIC TISSUE, loosely-adherent, yellow slough, MALODOR, absent, CALOR, present ERYTHEMA, present.?Neurological: ?SENSORY:?Neurological exam reveals intact sensorium, pain sensation [...] crumbly malodorous subungual debris, with pain on palpation,,TA,T2, T3, T4, T5, T6, T7, T8, T9.? Assessment: * Assessment: 1.?Cellulitis of left toe - L03.032 (Primary)???2.?Tinea unguium - B35.1???3.?Pain in right toe(s) - M79.674???4.?Pain in left toe(s) - M79.675???5.?Skin ulcer of toe of left foot with fat layer exposed - L97.522??? c Plan: * Treatment: 2.?Tinea unguium?Procedure: [id number] NAIL, 6 OR MORE 3.?Skin ulcer of toe of left foot with fat layer exposed?Procedure: [id number] SKIN/TISSUE * Procedures:?Debride Nail 6-10:?Nail debridement?Due to the clinical pathology outlined in the exam findings, performance of this nail treatment is medically necessary as its management by an unskilled/untrained nonprofessional would put this patients foot and overall health at risk. Therefore, debridement to affected nail(s), as described in exam ( TA,? T2, T3, T4, T5, T6, T7, T8, T9), was performed exclusively by the physician of record to reduce/remove overall nail length, girth, thickness, subungual debris, and necrotic tissue, by manual and/or electrical means through the use of a nail nipper and/or dremel-type grinder needle tip, to a more viable healthy nail plate [...] to maintain effectiveness in symptomatic relief - 62102.?Patient chooses ?debridement treatment only; no pharmaceutical tx.?Debride skin and subQ:?Open wound?Physician of record performed open wound selective debridement of devitalized necrotic/nonviable soft tissue, fibrin, exudate, epidermis, dermis, thru skin and subcutaneous fat tissue, first 20 sq cm or less, using sharp dissection with sterile 15 blade, and/or tissue nippers. ANESTHESIA was accomplished TOPICALLY with Lidocaine Hydrochloride Jelly 2 percent, Sterile antibiotic dressing applied. Hemostasis was controlled through direct pressure. Post debridement measurements: 7?mm x 7 mm x 3 mm. Character of the wound post debriement is stable (64122).? * Procedure Codes:?60862 DEBRI DE NAIL, 6 OR MORE, Modifiers: XS 79655 DEBRIDE SKIN/TISSUE, Modifiers: XS * Preventive Medicine:? ??Counseling:?Discussion:?-14: Office or other [...] have encouraged the patient to call the office.?Cellulitis/Lymphangitis?The patient was counseled on the diagnosis, etiology, treatment options, and importance for adherence to recommendations regarding the treatment for Cellulitis. Abx were Rxed to address the cellulitis. The advantages and disadvantages of an antibiotic medication, along with its side effects, were discussed with the patient to their comprehended satisfaction. Patient questions re: use, dosage, and possible pharmacutical interactions were reviewed and the answers clearly understood. If the condition should worsen while taking the antibiotics as directed, it was recommeded that the patient call the office immediately or seek emergency medical care. The patient verbally confirmed a full understanding of the above information, Rxed Abx, ER: Discussed with the patient that if there is any worsening of the condition, then he/she is to report to the ER/EW for evaluation/treatment. The patient stated to fully understand the recommendations/instructions.? * Follow Up:?2 Weeks * Images: * Sign off status: Completed true * Provider:?Gabriella Bangura DPM Date:?2024 Generated for Baron carson/Juventino/eTransmitting on:?12/15/2024 12:52 PM EDT History and Physical Notes * HPI (History of Present Illness) Category Sub-Category Detail Notes Category Not es Toe pain Nature: inflammed,open sore , red Location: , 2nd toe, Left foot Duration: several days Onset/Cause: shoe gear Painful Nails Pt States Last PCP Visit: Date:: 06/08/2024 Examination Category Sub-Category Detail Notes Category Not es Neurological SENSORY: Neurological exa m reveals intact sensorium, pain sensation normal, vibration sensation intact, pinprick sensation is normal in the lower extremities, Pt denies, anesthesia, burning, paresthesia, tingling, B/L Dermatologic SKIN FINDINGS: , Skin shows sig n(s) of, cellulitis with localized lymphangitis to 2 MTPJ left ULCER: Dorsal, T1, LOCATION , SIZE, 5mm X 5mm X 3mm, BASE, fibro-granular, RIM, hyperkeratotic, UNDERMINING, mild, TRACKING, Sub Q with Fat layer exposed, DRAINAGE, serosanguineous, moderate, NECROTIC TISSUE, loosely-adherent, yellow slough, MALODOR, absent, CALOR, present ERYTHEMA, present Vascular DORSALIS PEDIS PULSE: 2/4, B/L EDEMA: [...] crumbly malodorous subungual debris, with pain on palpation,,TA,T2, T3, T4, T5, T6, T7, T8, T9
--- OUTSIDE RECORDS SUMMARY | 2024-12-15 12:53 | XMS_ITS | Clinical Summary ---
Author Organization [address] [facility] Address [address] [place] [address] Phone Care Team Providers Care Solution Manager Name Role Phone Randall Hummel DO Primary Care Provider [phone] Allergies No known active allergies Medications torsemide (DEMADEX) 20 mg tablet Take 2 tablets by mouth once daily 180 tablet 2 4 Active multivitamin (MULTIPLE VITAMINS ORAL) Take by mouth. Active budesonide-glyc opyr-formoterol (Breztri Aerosphere) 160-9-4.8 mcg/actuation HFA aerosol inhaler inhaler Inhale into the lungs. Active cholecalciferol (VITAMIN D-3) 25 mcg (1,000 unit) tablet Take by mouth. Active clonazePAM (KlonoPIN) 0.5 mg tablet Take 0.5 mg by mouth daily as needed. Active omeprazole (PriLOSEC) [address] capsule Take 40 mg by mouth daily. Active oxyCODONE-aceta minophen (PERCOCET) 7.5-325 mg per tablet Take 1 tablet by mouth every 4 (four) hours. Active metoprolol succinate (TOPROL-XL) 100 mg 24 hr tablet Take 1 tablet (100 mg total) by mouth 1 (one) time each day. Do not crush or chew. 90 each 3 4 Active empagliflozin (Jardiance) 10 mg tablet Take 1 tablet (10 mg total) by mouth 1 (one) time each day. 90 tablet 2 5 Active rivaroxaban (Xarelto) 20 mg tablet Take 1 tablet (20 mg total) by mouth 1 (one) time each day with dinner. 90 tablet 1 5 Active amiodarone (PACERONE) 200 mg tablet Take 1 tablet (200 mg total) by mouth 1 (one) time each day. 90 tablet 1 4 12/07/19 25 Discontinu ed(Alterna te therapy) dilTIAZem XR (DILACOR XR) 180 mg 24 hr capsule Take 1 capsule (180 mg total) by mouth 1 (one) time each day. 1 12/07/19 25 Discontinu ed(Alterna te therapy) rivaroxaban (Xarelto) 20 mg tablet TAKE 1 TABLET BY MOUTH ONCE DAILY IN THE EVENING 90 tablet 1 5 12/07/19 25 Discontinu ed(Reorder ) Active Problems Problem Noted Date Diagnosed Date JEAN PAUL (obstructive sleep apnea) 07/02/2024 Overview (07/26/2024): Last Assessment & Plan: Previously unable to tolerate BiPAP; we discussed the potential negative long- term implications of untreated sleep apnea as it relates to her cardiovascular health and she verbalized understanding of this. She declines repeat sleep study for reevaluation. Secondary hypercoagulable state 07/02/2024 PACK (dyspnea on exertion) 07/30/2023 Overview (07/26/2024): Last Assessment & Plan: Chronic and stable as discussed above; likely multifactorial related to a combination of underlying cardiovascular and pulmonary disease, deconditioning, and obesity. Hypoxia 07/30/2023 Chronic diastolic heart failure 02/12/2022 Overview (07/26/2024): Last Assessment & Plan: The patient appears euvolemic on exam today and offers no symptoms concerning for overt heart failure. As below, shortness of breath is chronic and only with significant exertion; no worse now than in the past. Continue metoprolol and Jardiance in addition to torsemide. I've asked the patient to call if they develop worsening symptoms of heart failure such as increased shortness of breath, new or worsening cough, increased swelling in the legs or ankles, or weight gain of more than 2 pounds in one day or 4 pounds in one week. CKD (chronic kidney disease) 07/10/2021 Overview (07/26/2024): Last Assessment & Plan: Updating labs as above. Hypothyroidism due to medication 07/10/2021 Idiopathic hypotension 07/10/2021 Peripheral vascular disease 04/09/2021 Overview (07/26/2024): Peripheral vascular disease Varicose veins of legs 04/09/2021 Overview (07/26/2024): Venous varices Cardiomyopathy 04/05/2021 History of non-ST elevation myocardial infarctio n (NSTEMI) 04/05/2021 Overview (07/26/2024): Elevated troponins in the ER in addition to atrial fibrillation with rapid ventricular response status post ablation earlier that same month in March 2021; diagnosed with NSTEMI Last Assessment & Plan: As above, the patient has a history of NSTEMI in the setting of heart failure and atrial fibrillation with RVR status post recent ablation. The patient offers no symptoms concerning for underlying ischemia; she stays active on a regular basis and only reports shortness of breath with significant exertion that has been ongoing and unchanged for many years now. She does have underlying pulmonary disease which is likely contributory, in addition to deconditioning and obesity. PAC (premature atrial contraction) 04/05/2021 PVC (premature ventricular contraction) 04/05/20 21 Obesity 12/04/2020 Overview (07/26/2024): Last Assessment & Plan: Patient is obese. Approaches towards weight loss are discussed, including burning more calories than one takes in by portion control and regular exercise with an emphasis on duration rather than intensity . Reactive airway disease 12/04/2020 Paroxysmal atrial fibrillation 09/27/2020 Paroxysmal atrial flutter 09/27/2020 Overview (12/06/2024): This patient has paroxysmal atrial fibrillation and atrial flutter. She had a cryoballoon ablation of the pulmonary veins. Due to recurrences she ended up with a repeat radiofrequency ablation with reisolation of the pulmonary veins and posterior wall isolation. Due to persistent left atrial flutter she was brought back to the lab and at pulsed field ablation in the lateral isthmus that terminated inducement dependent atrial flutter. [id number] score is elevated by age over 75 and female gender. She has been anticoagulated with Xarelto. She was placed on amiodarone after her initial recurrences which she is tolerating well. Assessment & Plan (08/16/2024 11:07 AM EST): Recurrent atrial flutter that is likely a left sided posterior wall flutter through the roof or floor of the posterior wall lesion set. I went through the options which include rate control, rhythm control with cardioversion and rhythm control with ablation and we are going to proceed to mapping and ablation as this gives us the highest success rate long-term with the minimal medications. I will continue her current medicines given she appears to be reaching reasonable rate control and is not currently symptomatic. I will likely stop the metoprolol and diltiazem as well as the amiodarone after the procedure depending on her resting heart rate. We went through the risks of the procedure and she is in agreement to proceed and understands and is accepting of this risk. Anxiety disorder 01/13/2018 Overview (07/26/2024): Comments: On Sertaline. Stopped last year. Essential hypertension 01/13/2018 Overview (07/26/2024): Last Assessment & Plan: Blood pressure is well-controlled on current medical therapy; continue metoprolol, diltiazem, and torsemide. The patient's most recent metabolic panel was completed on 08/29/2023; she does have orders in place for a repeat metabolic panel and CBC and was reminded of this today. She states that she will have them done in the very near future. Esophageal reflux 03/27/2017 Overview (07/26/2024): Comments: Taking omeprazole and had taken Prevpak in past. Gets back pain as symptom of reflux. Had EGD and Colonoscopy by Dr Michele Meier in 2006. Hearing loss 01/07/2017 Allergic rhinitis 03/20/2016 Depression 03/20/2016 Edema 03/20/2016 Thrombophlebitis of leg, superficial 03/20/2016 Overview (07/26/2024): Superficial thrombophlebitis Headache 11/22/2015 Low back pain 07/06/2015 Venous insufficiency 07/31/2011 Encounters Date Type Department Care Team Description 12/06/2024 10:25 AM EDT Office Visit [facility] Cardiology [facility] [address] [place] [address] Aba Vizcarra MD Paroxysmal atrial fibrillation (CMS/HCC) (Primary Dx); Paroxysmal atrial flutter (CMS/HCC) 10/14/2024 Telephone [facility]iology [facility] - [address] [place] [address] Aba Vizcarra MD Med Refill (Jardiance) 10/07/2024 Telephone [facility] [address] [place] [address] Eloise Eugene MA 10/06/2024 11:00 AM EST Ancillary Procedure [facility] - [address] [place] [address] Unspecified atrial flutter (CMS/HCC); Paroxysmal atrial fibrillation (CMS/HCC); Essential (primary) hypertension; Old myocardial infarction from Last 3 Months Surgical History Surgery Date Site/Laterality Comments HYSTERECTOMY 2000 PROCEDURE: HISTORICAL HYSTERECTOMY CHOLECYSTECTOMY 10/2005 PROCEDURE: HISTORICAL CHOLECYSTECTOMY OTHER SURGICAL HISTORY 11/2006 PROCEDURE: HISTORICAL PANNICULECTOMY OTHER SURGICAL HISTORY 12/2007 PROCEDURE: HISTORY OTHER; COMMENT: Abdominoplasty OTHER SURGICAL HISTORY 2005 PROCEDURE: NE LAPS GSTR RSTCV PX W/BYP [id number]-[id number] LIMB <150 CM ABLATION DONE ON 09/09/2024 AT [place] [facility] INDICATIONS:Atrial flutter and Atrial Fibrillation. Medical History Medical History Date Comments History of blood clots DX:Histor y of blood clots; COMMENT: in the lung Superficial thrombophlebitis DX: Superficial thrombophlebitis PVD (peripheral vascular dis ease) (CMS/HCC) DX:PVD (peripheral vascular disease) (HCC) Varicose veins of legs DX:Varico se veins of legs DVT (deep venous thrombosis) (CMS/HCC) DX:DVT (deep venous thrombos is) (HCC) Obesity DX:Obesity GERD (gastroesophageal reflu x disease) 04/05/2021 DX:GERD (gastroesophageal re flux disease) Excessive bleeding DX:Excessive bleeding Anxiety DX:Anxiety Family History Medical History Relation Name Comments Coronary artery disease Father Diabetes Father Hypertension Father Dementia Mother w/ complication s Hypertension Mother Other: DVT Mother Diabetes Sister Relation Name Status Comments Father Alive Mother Sister Alive Social History Tobacco Use Types Packs/Day Years Used Date Smoking Tobacco: Never Passive Smoke Exposure: Past Smokeless Tobacco: Never Tobacco Cessation:Counseling Given: No Alcohol Use Standard Drinks/Week Comments Yes 0 (1 standard drink = 0.6 oz pur e alcohol) Comments Unknown Sex and Gender Information Value Date Recorded Sex Assigned at Not on file Legal Sex Female 1:50 AM EST Gender Identity Not on file Sexual Orientation Not on file Obstetrics History Last Filed Vital Signs Vital Sign Reading Time Taken Comments Blood Pressure 110/68 12/06/2024 10:41 AM EDT Pulse 69 12/06/2024 10:41 AM EDT Temperature - - Respiratory Rate - - Oxygen Saturation 96% 12/06/2024 10:41 AM EDT Inhaled Oxygen Concentration - - Weight 97.1 kg (214 lb) 12/06/2024 10:41 AM EDT Height 172.7 cm (5' 8 ) 12/06/2024 10:41 AM EDT Body Mass Index 32.54 12/06/2024 10:41 AM EDT Plan of Treatment Upcoming Encounters Date Type Department Care Team (Late st Contact Info) Description 06/08/2025 12:40 PM EDT Office Visit [facility] [address] [place] [address] Marialuisa Matt NP [address] [place] [address] Health Maintenance Due Date Last Done Comments DTaP,Tdap,and Td Vaccines (1 - Tdap) 1969 Depression Screening 08/17/2022 Falls Risk Assessment 08/17/2022 Hepatitis C Screening 08/17/2022 Medicare Annual Wellness Visit 08/17/2022 Osteoporosis Screening (Bone Density Screening) 08/17/2022 Social Influencers of Health Screening 08/17/2022 COVID-19 Vaccine ( season) 2024 06/24/2023, 05/30/2022, 12/08/2021, Additional history exists Influenza Vaccine (Season Ended) 2025 08/04/2023, 05/20/2022, 06/30/2021 Colorectal Cancer Screening: FIT-DNA (Cologuard) 07/29/2025 07/29/2022, 07/29/2022, 11/05/2017 Hypertension/CHF/CAD Annual BMP Blood Test 09/06/2025 09/06/2024, 08/09/2024, 08/29/2023 Cholesterol Screening (Lipid Panel) 08/09/2029 08/09/2024 Pneumococcal Vaccine: 50+ Years Completed 08/06/2021, 09/25/2020 Zoster Vaccines Completed 10/30/2021, 06/30/2021 RSV Immunization Adult Patients Completed 07/23/2023 HIB Vaccines Aged Out No longer eligi ble based on patient's age to complete this topic HPV Vaccines Aged Out No longer eligi ble based on patient's age to complete this topic Hepatitis A Vaccines Aged Out No long er eligible based on patient's age to complete this topic Hepatitis B Vaccines Aged Out No long er eligible based on patient's age to complete this topic IPV Vaccines Aged Out No longer eligi ble based on patient's age to complete this topic MMR Vaccines Aged Out No longer eligi ble based on patient's age to complete this topic Meningococcal ACWY Vaccine Aged Out N o longer eligible based on patient's age to complete this topic Meningococcal B Vaccine Aged Out No l onger eligible based on patient's age to complete this topic RSV Immunization Patients Under 20 months Aged Out No longer eligible based on patient's age to complete this topic Varicella Vaccines Aged Out No longer eligible based on patient's age to complete this topic Procedures Procedure Name Priority Date/Time Associated Diagnosis Comments ECG 12-LEAD Routine 12/06/2024 10:58 AM EDT Paroxysmal atrial fibrillation (CMS/HCC) TRANSTHORACIC ECHOCARDIOGRAM (TTE) COMPLETE Routine 10/06/2024 11:30 AM EST Unspecified atrial flutter (CMS/HCC) Paroxysmal atrial fibrillation (CMS/HCC) Essential (primary) hypertension Old myocardial infarction BASIC METABOLIC PANEL Routine 09/06/2024 1:57 PM EST LIPID PANEL WITH REFLEX TO DIRECT LDL Routine 08/09/2024 11:49 AM EST Myxedema heart disease Essential hypertension, malignant CKD (chronic kidney disease) from Last 3 Months or Most Recently Relevant to Health Maintenance Results * ECG 12 lead (12/06/2024 10:58 AM EDT) Ventricular Rate ECG 69 BPM GEMUSE Atrial Rate 69 BPM GEMUSE P-R Interval 180 ms GEMUSE QRS Duration 94 ms GEMUSE Q-T Interval 444 ms GEMUSE QTc 475 ms GEMUSE P Wave Victor 83 degrees GEMUSE R Victor -18 degrees GEMUSE T Victor 66 degrees GEMUSE ECG Interpretation Normal sinus rhythm Normal ECG When compared with ECG of 16-AUG-2024 10:22, Previous ECG has undetermined rhythm, needs review ST no longer elevated in Inferior leads GEMUSE 12/06/2024 10:3 6 AM EDT Narrative GEMUSE - 12/06/2024 10:58 AM EDT Sinus rhythm 69 bpm. ??Normal ECG. us Aba Vizcarra MD ECG ORDERABLES Final Result GEMUSE * (ABNORMAL) TRANSTHORACIC ECHOCARDIOGRAM (TTE) COMPLETE (10/06/2024 11:30 AM EST) Left Atrium Minor Victor 6.2 cm CV PACS Left Atrium Major Victor 7.0 cm CV PACS LA Area Sys (A2C) 29 cm2 CV PACS LA Area Sys (A4C) 29 cm2 CV PACS LA Volume (BP) 107 mL CV PACS RA Area 22.5 cm2 CV PACS RA 2D Volume 70 mL CV PACS AV Mean Gradient 3 mmHg CV PACS Ao VTI 26.7 cm CV PACS AV Peak Denny 1.2 m/s CV PACS AV Peak Gradient 6 mmHg CV PACS AV Area Continuity Equation 2.7 cm2 CV PACS AV Area Peak Velocity 2.7 cm2 CV PACS Aortic Sinus Valsalva 3.4 cm CV PACS Ascending Aorta 2.9 cm CV PACS IVC Proximal 2.1 cm CV PACS IVSD 1.0(A) 0.6 - 0.9 cm CV PACS LVIDD 4.8 3.8 - 5.2 cm CV PACS LVIDS 2.8 2.2 - 3.5 cm CV PACS LVOT Diameter 2.0 cm CV PACS LVOT Mean Grad 2 mmHg CV PACS LVOT Peak VTI 22.6 cm CV PACS LVOT Mean Denny 0.7 m/s CV PACS LVOT Peak Denny 1.0 m/s CV PACS LVOT Peak Gradient 4 mmHg CV PACS LVPWD 1.0(A) 0.6 - 0.9 cm CV PACS MV E' Tissue Velocity Lateral 13 cm/s CV PACS MV E' Tissue Velocity Septal 11 cm/s CV PACS LVOT Area 3.1 cm2 CV PACS LVOT Stroke Volume 71 mL CV PACS E Wave Deceleration Time 148 119 - 242 ms CV PACS MV Peak A Denny 0.26 m/s CV PACS MV Peak E Denny 0.89 m/s CV PACS RV Diastolic Basal Dimension 3.9 2.5 - 4.1 cm CV PACS RV S' 14 cm/s CV PACS TAPSE 24 mm CV PACS TR Peak Velocity 2.82 m/s CV PACS TR Peak Gradient 32 mmHg CV PACS E/E' Ratio Septal 8 CV PACS E/E' Ratio Averaged 7 CV PACS Relative Wall Thickness ratio 0.42 CV PACS LVOT:AV VTI Index 0.85 CV PACS FS 42 % CV PACS LV Mass 2D 170 g CV PACS LVOT flow 220 mL/s CV PACS AV Velocity Ratio 0.83 CV PACS E/A Ratio 3.4 CV PACS E/E' Ratio Lateral 7 CV PACS BSA 2.17 m2 CV PACS LA Volume Index (BP) 51 mL/m2 CV PACS LVIDD Index 2.27 cm/m2 CV PACS LVIDS Index 1.33 cm/m2 CV PACS LV Mass Index 2D 81 44 - 88 g/m2 CV PACS LVOT Stroke Index 34 mL/m2 CV PACS RA 2D Volume Index 33(A) 15 - 27 mL/m2 CV PACS JOAQUIN Index (VTI) 1.26 cm2/m2 CV PACS JOAQUIN Index (Pk Denny) 1.28 cm2/m2 CV PACS Ascending Aorta Index 1.37 cm/m2 CV PACS Right Ventricular Peak Systolic Pressure 35 mmHg CV PACS Est. RA Pressure 3 mmHg CV PACS Anatomical Region Laterality Modality Ultrasound Narrative 10/06/2024 4:09 PM EST ?Left ventricle cavity size is normal. Left ventricular systolic function is in the normal range with an ejection fraction of 60-65%. ?No regional LV wall motion abnormalities noted. ?Left ventricle wall thickness is normal. ?Right ventricle cavity is normal. Right ventricular systolic function is normal. ?There is mild mitral regurgitation. ??There is mild tricuspid regurgitation with borderline elevation of the RV systolic pressure. ??No other significant valvular abnormalities. ?Normal estimated CVP. ?No significant change from August 12, 2023 Left Ventricle Left ventricle cavity size is normal. Wall thickness is normal. Systolic function is normal with an ejection fraction of 60-65%. Indeterminate diastolic function. Right Ventricle Right ventricle cavity appears normal. Systolic function is normal. Left Atrium Left atrium volume index is severely increased. Right Atrium Right atrium cavity is dilated. IVC/SVC RA pressures is estimated to be 3 mmHg (IVC diameter <21 mm and decreases >50% during inspiration). Mitral Valve The leaflets are mildly thickened. There is mild annular calcification. There is mild regurgitation. There is no evidence of mitral valve stenosis. Tricuspid Valve The leaflets exhibit normal excursion. There is mild regurgitation. The RVSP is estimated at 35 mmHg. Aortic Valve The aortic valve is trileaflet. The leaflets are mildly calcified. There is no regurgitation or stenosis. Pulmonic Valve Visualized portions of the pulmonic valve appear normal. There is trace pulmonic valve regurgitation. Ascending Aorta The aorta appears normal in size. Pericardium Pericardium appears normal. Study Details Overall the study quality was adequate. Physician declined use of left ventricular opacification agent to enhance imaging. Difficult acoustic windows. Diann Barragan NP CV ECHO PROCEDURES Fi nal Result * (ABNORMAL) Basic metabolic panel (09/06/2024 1:57 PM EST) Pathologist [facility] Glucose 73 70 - 99 mg/dL [facility] Blood Urea Nitrogen (BUN) 25 8 - 27 mg/dL [facility] Creatinine 1.42(H) 0.57 - 1.00 mg/dL [facility] 1 eGFR 39(L) >59 mL/min/1.7 3 [facility] 1 BUN/Creatinine Ratio 18 12 - 28 [facility] 1 Sodium 144 134 - 144 mmol/L [facility] 1 Potassium 4.0 3.5 - 5.2 mmol/L [facility] 1 Chloride 101 96 - 106 mmol/L [facility] 1 Carbon Dioxide 28 20 - 29 mmol/L [facility] 1 09/06/2024 1:57 PM EST 09/06/2024 Narrative [facility] 1 - 09/07/2024 4:05 AM EST Performed at: ??01 - [facility] [address] ??[id number] Assistant Hairstylist: Cha Shin MD, Phone: ??[phone] us Aba Vizcarra MD LAB BLOOD ORDERABLES Final Res ult [facility] 1 * Lipid panel with reflex to direct LDL (08/09/2024 11:49 AM EST) Pathologist [facility] Cholesterol 161 0 - 200 mg/dL LAB CHEMISTRY METHOD 08/09/2024 4:44 PM EST [facility] Triglycerides 70 0 - 150 mg/dL LAB CHEMISTRY METHOD 08/09/2024 4:44 PM EST [facility] HDL 67 >=40 mg/dL LAB CHEMISTRY METHOD 08/09/2024 4:44 PM EST [facility] LDL Calculated 80 0 - 100 mg/dL LAB CHEMISTRY METHOD 08/09/2024 4:44 PM EST [facility] VLDL Cholesterol Jaret 14 mg/dL LAB CHEMISTRY METHOD 08/09/2024 4:44 PM EST [facility] Non HDL Chol. 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
== END 2024-12-15 11:23 | disposition home or self-care (01) ==
LOC: HO.HPS 10:57
PROVIDERS: PCP Internal Medicine; Visit Provider Hospitalist
DX: J44.9 Chronic obstructive pulmonary disease, unspecified (principal); R06.00 Dyspnea, unspecified; I27.20 Pulmonary hypertension, unspecified
CPT/HCPCS: 99214

== ENCOUNTER → 2024-12-15 10:56 | Outpatient (BNVA) | payer MEDICARE, BC, SELFPAY | PROVIDERS: PCP Internal Medicine; Visit Provider Hospitalist | DX: J44.9 Chronic obstructive pulmonary disease, unspecified (principal); I27.20 Pulmonary hypertension, unspecified; R06.00 Dyspnea, unspecified | CPT/HCPCS: 99212 ==